=== PATIENT | female | born 1950 | race Caucasian/White ===

== ENCOUNTER → 2023-10-10 11:39 | Outpatient (REF) | payer MEDICARE, OTHER, SELFPAY ==
[2023-10-10 12:08] LABS: % Basophils 0.7 % (0-2); % Eosinophils 5.8 % (0-6); % Immature Granulocytes 0.7 % (0-0.5); % Lymphocytes 25.7 % (20.5-51.1); % Monocytes 8.7 % (1.7-9.3); % Neutrophils 58.4 % (42.2-75.2); Absolute Eosinophils 0.3 10^3/uL (0-0.7); Absolute Lymphocytes 1.5 10^3/uL (1.2-3.4); Absolute Monocytes 0.5 10^3/uL (0.1-0.6); Absolute Neutrophils 3.4 10^3/uL (1.4-6.5); Hematocrit 36.7 % (37.0-47.0); Hemoglobin 12.8 g/dL (12.0-16.0); Mean Corp Hgb Conc. 34.9 g/dL (33.0-37.0); Mean Corpuscular Hgb 32.9 pg (27.0-31.0); Mean Corpuscular Volume 94.3 fL (81.0-99.0); Mean Platelet Volume 10.3 fL (7.4-10.4); Nucleated Red Blood Cells % 0 %; Platelet Count 200 10^3/uL (130-400); Red Blood Cell Count 3.89 10^6/uL (4.20-5.40); Red Cell Dist. Width 12.3 % (11.5-14.5); White Blood Cell Count 5.8 10^3/uL (4.8-10.8)
[2023-10-10 12:31] LABS: ALT (SGPT) 28 U/L (0-35); AST (SGOT) 35 U/L (14-36); Albumin 4.4 g/dl (3.5-5.0); Alkaline Phosphatase 91 U/L (38-126); Direct Bilirubin 0.6 mg/dl (0.0-0.4); Total Bilirubin 1.2 mg/dl (0.2-1.3); Total Protein 7.8 g/dl (6.3-8.2)
[2023-10-13 00:58] LABS: Quantiferon Mitogen minus NIL 9.39 IU/mL; Quantiferon NIL 0.03 IU/mL; Quantiferon Plus TB2 minus NIL 0.01 IU/mL (0.00-0.34); Quantiferon TB Gold Plus Negative (Negative)
== END ==
LOC: REG 11:39
PROVIDERS: ATTENDING PHYSICIAN Nurse Practitioner; FAMILY PHYSICIAN Family Medicine
DX: L40.8 Other psoriasis (principal)
CPT/HCPCS: 36415; 80076; 85025; 86480

== ENCOUNTER 2024-05-28 21:40 | Inpatient (IN) | payer MEDICARE, OTHER, SELFPAY ==
[2024-05-28 15:09] VITALS: BP 160/91
[2024-05-28 15:40] LABS: % Basophils 0.4 % (0-2); % Eosinophils 2.2 % (0-6); % Immature Granulocytes 0.7 % (0-0.5); % Lymphocytes 17.5 % (20.5-51.1); % Monocytes 10.5 % (1.7-9.3); % Neutrophils 68.7 % (42.2-75.2); Absolute Eosinophils 0.2 10^3/uL (0-0.7); Absolute Immature Granulocytes 0.1 10^3/uL (0-0.05); Absolute Lymphocytes 1.5 10^3/uL (1.2-3.4); Absolute Monocytes 0.9 10^3/uL (0.1-0.6); Absolute Neutrophils 5.9 10^3/uL (1.4-6.5); Hematocrit 35.7 % (37.0-47.0); Hemoglobin 12.6 g/dL (12.0-16.0); Mean Corp Hgb Conc. 35.3 g/dL (33.0-37.0); Mean Corpuscular Hgb 32.6 pg (27.0-31.0); Mean Corpuscular Volume 92.5 fL (81.0-99.0); Mean Platelet Volume 9.8 fL (7.4-10.4); Nucleated Red Blood Cells % 0 %; Platelet Count 189 10^3/uL (130-400); Red Blood Cell Count 3.86 10^6/uL (4.20-5.40); Red Cell Dist. Width 12.8 % (11.5-14.5); White Blood Cell Count 8.6 10^3/uL (4.8-10.8)
[2024-05-28 15:48] LABS: Urine Albumin Trace (Neg - Trace); Urine Bilirubin 1+ (Negative); Urine Character Clear (Clear); Urine Color Yellow; Urine Glucose Negative (Negative); Urine Ketone Negative (Negative); Urine Leukocyte 1+ (Negative); Urine Nitrite Negative (Negative); Urine Occult Blood Negative (Negative); Urine Specific Gravity 1.015 (<1.030); Urine Urobilinogen Negative (Neg - 1+)
[2024-05-28 15:51] LABS: Lactic Acid 1.3 mmol/L (0.7-2.0)
[2024-05-28 15:57] LABS: ALT (SGPT) 26 U/L (0-35); AST (SGOT) 27 U/L (14-36); Albumin 4.7 g/dl (3.5-5.0); Alkaline Phosphatase 80 U/L (38-126); Blood Urea Nitrogen 20 mg/dl (7-17); Calcium 8.8 mg/dl (8.4-10.2); Carbon Dioxide 19 mmol/L (22-30); Chloride 99 mmol/L (98-107); Glucose 128 mg/dl (70-99); Lipase 33 U/L (23-300); Potassium 4.3 mmol/L (3.5-5.1); Sodium 135 mmol/L (135-145); Total Bilirubin 2.1 mg/dl (0.2-1.3); Total Protein 7.6 g/dl (6.3-8.2); eGFR 43.15
[2024-05-28 16:05] LABS: Urine Bacteria Many (Negative); Urine Red Blood Cell 0-2 /HPF (0-2)
[2024-05-28 17:47] VITALS: BP 136/81; BMI 39.8
--- NOTE | 2024-05-28 18:15 | ED.GENMED ---
History of Present Illness
General
Chief Complaint: Abdominal Pain
Source: patient
Exam Limitations: none
Time Seen by Provider: 05/28/24 17:00
Nursing documentation reviewed up to this point in time: agreed with
History of Present Illness
History of Present Illness:
pt is a 73 y/o F with h/o remote femur fx
Also remote diagnosis of ulcerative colitis though she takes no meds for this and this was years and years ago. She also had a history of anal surgery and a rectal prolapse surgery years ago at an outside facility
She has not had a colonoscopy in many years
here with RLQ pain x 2 days, worse with movement, very uncomfortable
no radiation to back
no fever/chills/naussea/vomiting/diarrhea/urinary symptoms
bob never had idvertic
still has appendix
nothin taken for pain
laying in bed the past 2 days becuase she is uncomforrtable
Past History
Past History
ED Past Medical History: HTN and Other (obesity)
Social History
Tobacco: Non-smoker
Review of Systems
Review of Systems
Allergies reviewed?: Yes
All Other Systems: Not applicable
Phy Exam
Physical Exam
Physical Exam:
GENERAL: Alert , in no apparent distress
EYE: pupils equal and reactive
NECK: Supple
ENT: o/p clr, mmm.
CARDIAC: Regular rate and rhythm .
LUNGS: Clear breath sounds bilaterally, no acute respiratory distress, no wheezes/rales/rhonchi
ABDOMEN: Soft, mod RLQ tendernesss, moderate voluntary guarding, mild rebound, no cvat, normal bowel sounds
NEUROLOGICAL: Alert and oriented, no focal neuro deficits
SKIN: Warm and dry, skin intact.
MUSCULOSKELETAL: No edema, well perfused.
PSYCH: Normal and appropriate interaction.
Course
Orders/Labs/Results
Orders:
Orders
05/28/24 Dinner
NPO
Allow oral meds: No
Allow clear liquids: No
NPO with Ice Chips: No
05/28/24 15:29
Complete Blood Count/With Diff Urgent
Comprehensive Metabolic Panel Urgent
Lactic Acid Urgent
Lipase Urgent
Urinalysis Reflex To Culture Urgent
Date Specimen was Collected: 05/28/24
Time Specimen was Collected: 14:55
Urine Microscopic Reflex Cult Urgent
Urine Culture Urgent
GEENA Source: U
Specimen Description:
Date Specimen was Collected: 05/28/24
Time Specimen was Collected: 14:55
05/28/24 17:57
CT Abd/Pel (IV only)-DH only Urgent
Comment:
Reason For Exam: rlq pain x 2 days, guarding rebound
0.9% Sodium Chloride 1000 ml [Nss] 1,000 ml IV BOLUS
HYDROmorphone [Dilaudid] 0.5 mg IV NOW STA
05/28/24 19:24
Ciprofloxacin 400 mg/[id number] [Cipro 400 mg] 200 ml IV NOW
MetroNIDAZOLE 500 MG/100 ML [Flagyl 500 mg] 100 ml IV NOW
05/28/24 20:10
HYDROmorphone [Dilaudid] 1 mg IV NOW STA
Abnormal Lab Results
05/28/24
15:29
RBC 3.86 L 10^6/uL
(4.20-5.40)
Hct 35.7 L %
(37.0-47.0)
MCH 32.6 H pg
(27.0-31.0)
Abs Immat Gran (auto) 0.1 H 10^3/uL
(0-0.05)
Absolute Monos (auto) 0.9 H 10^3/uL
(0.1-0.6)
Immature Gran % 0.7 H %
(0-0.5)
Lymphocytes % 17.5 L %
(20.5-51.1)
Monocytes % 10.5 H %
(1.7-9.3)
Carbon Dioxide 19 L mmol/L
(22-30)
BUN 20 H mg/dl
(7-17)
Creatinine 1.3 H mg/dL
(0.6-1.0)
Glucose 128 H mg/dl
(70-99)
Total Bilirubin 2.1 H mg/dl
(0.2-1.3)
Urine Bilirubin 1+ A
(Negative)
Leukocyte Esterase Rfl 1+ A
(Negative)
Urine WBC (Reflex) 11-15 A /HPF
(0-5)
Urine Bacteria (Reflex) Many A
(Negative)
05/28/24 15:29
05/28/24 15:29
Vital Signs
Initial and Last Documented VS:
Initial Vital Signs
Temp Pulse Resp BP Pulse Ox
98.3 F 90 20 160/91 98
05/28/24 15:09 05/28/24 15:09 05/28/24 15:09 05/28/24 15:09 05/28/24 15:09
Last Documented Vital Signs
Temp Pulse Resp BP Pulse Ox
98.5 F 86 16 136/81 98
05/28/24 17:47 05/28/24 17:47 05/28/24 17:47 05/28/24 17:47 05/28/24 18:15
MDM/Problems Addressed
Differential Diagnosis Includes:
Appendicitis, diverticulitis, ischemic bowel, perforation
MDM/Problems Addressed:
luzmckinley camejo 73 yo F 2 days RLQ pain, no fever/no diarrhea
no chronic GI issues reported; very tender RLQ with mild rebound, wbc 8.6 lactic normal
and this confusing ct report
[facility] CT: Suspicion for a large 5.5 cm mucosal-based intraluminal mass in the distal ascending colon. Diagnostic possibilities are (1) colon adenocarcinoma or (2) a conglomerate of fecal material.
Mild acute colitis in the more proximal ascending colon.
Severe chronic colitis throughout the transverse colon, descending colon, sigmoid colon, and rectum with an increased amount of submucosal fat deposition throughout the colon.
7.3 mm calcified appendicolith in the base of the appendix and mild appendiceal distention suspicious for mild acute appendicitis.
Mild hepatic cirrhosis.
Mild hepatosplenomegaly.
Discussed the case with on-call general surgeon Dr. Soria who did not feel that the appendix was likely to be the cause of the patient's symptoms but more suspicious that she is having some reactive inflammation from the colon mass and the colonic
distention and colitis. Patient is still in a fair amount of pain. He is aware of this. I ordered IV antibiotics. His recommendation was to admit to the medicine, keep n.p.o., consult GI, she will need a workup for this mass
*Critical Care Note
Total Time (30-74mins, 75-104mins- exclusive of procedures): Not Applicable
ED Attending Note
-
Portions of this chart may have been created with voice recognition software.� Occasional wrong word or��sound alike� substitutions may have occurred due to the inherent limitations of voice recognition software.
Discharge Plan
Departure
Patient Disposition: Admit
Date of Disposition: 05/28/24
Time of Disposition: 19:42
Admit to: Med/Surg
Presentation/result/management discussed w/ accepting MD/DO: Hospitalist
Condition: Fair
Covid-19: Not Applicable
Discharge Problem:
Colonic mass, Colitis, Appendicolith
Prescriptions:
No Action
cyanocobalamin (vitamin B-12) 1,000 mcg Tablet
1,000 mcg PO DAILY
lisinopril 10 mg Tablet
10 mg PO DAILY
hydrochlorothiazide 25 mg Tablet
25 mg PO DAILY
esomeprazole magnesium [Nexium 24HR] 20 mg Capsule,Delayed Release(Dr/Ec)
20 mg PO DAILYPRN PRN (Reason: gerd)
cholecalciferol (vitamin D3) [Vitamin D3] 25 mcg (1,000 unit) Tablet
25 mcg PO DAILY
Referrals:
Barber Calderon, DO [Family Provider] -
Interventions
Interventions:
*Risk Screen - Suicide Last Done: 05/28/24 17:47
*General Assessment Last Done: 05/28/24 15:09
*Neglect/Abuse Screening Last Done: 05/28/24 17:47
ED- Fall Risk Assessment Last Done: 05/28/24 17:47
*ED COVID-19 Vaccine History Last Done: 05/28/24 17:47
BE-Knemke-Btoqqwdaqq Assessment Last Done: 05/28/24 17:47
Discharge Date and Time
Print Language: AMHARIC
[2024-05-28] MEDS: NSS 1000 IV ×2 (18:16→23:34)
[2024-05-28] MEDS: DILAUDID 0.5 MG IV (18:16)
--- NOTE | 2024-05-28 20:22 | HPS.HSE ---
Addendum entered and electronically signed by Van Hilliard DO 05/28/24 22:01:
Patient seen and examined independently. Agree with findings and plan as set forth by VERENICE Piedra.
Patient is a 73y F with PMH significant for bladder cancer, hypertension and prior rectal surgeries who presents to ED complaining of RLQ pain for the past 24 hours. Patient reports recent loose stools due to magnesium supplementation. No
bloody / black stools. No noted constipation, N/V, fevers / chills, etc.
Evaluation in the ED includes CT scan which sows possible ascending colon mass versus conglomerate of fecal material.
Ass:
RLQ Pain - Mass v Constipation
Possible Appendicitis
CKD III
Anion Gap Metabolic Acidosis
Benign Hypertension
GERD
Plan;
Admit for further evaluation and treatment.
NPO, IVFs, pain control, etc.
Colorectal Surgery evaluation for colonoscopy versus surgery for further evaluation of ascending colon abnormality.
IV abx for now - though patient is afebrile and not toxic appearing.
Continue outpatient medications.
Follow for any new / worsening symptoms.
Original Note:
Family Physician
-
Family Physician: Barber Calderon
Chief Complaint
-
right lower quadrant pain
History of Present Illness
73 y/o F with PMH for ulcerative colitis, bladder cancer, GERD, HTN, rectal prolpase, anal surgery presented to us with right lower quadrant pain for past two days. stated no appetite for two days. she has chronic diarrhea.denied nausea or
vomiting. denied fever, chills, chest pain, sob.denied AVERY, dizy or syncopal episode. denied dysuria or hematuria.
CT with Suspicion for a large 5.5 cm mucosal-based intraluminal mass in the distal ascending colon. Diagnostic possibilities are (1) colon adenocarcinoma or (2) a conglomerate of fecal material.
2. Mild acute colitis in the more proximal ascending colon.
3. Severe chronic colitis throughout the transverse colon, descending colon, sigmoid colon, and rectum with an increased amount of submucosal fat deposition throughout the colon.
4. 7.3 mm calcified appendicolith in the base of the appendix and mild appendiceal distention suspicious for mild acute appendicitis.
patient received IV Cipro and Flagyl, fluids. admitting for further management.
Medical History
Past Medical History
Past Medical History: Reports Other
Additional Past Medical History:
Obstructive sleep apnea
Hypertension
Bladder cancer
Insomnia
GERD
Hyperlipidemia
hypertension
Chronic kidney disease a
Past Surgical History: Reports Other
Additional Past Surgical History:
anal surgery
left femur surgery
Social History
Tobacco: Former Smoker
Alcohol: Occasional
Drug: None
Family History
Family History: Not pertinent
Allergies / Home Medications
Allergies reflects when Allergies were last updated in the grafter.
Home Medications with original date entered in the grafter
Allergy/Medication List:
Allergies
Allergy/AdvReac Type Severity Reaction Status Date / Time
penicillin G Allergy Hives Verified 05/28/24 15:09
Penicillins Allergy Hives Verified 05/28/24 15:09
Home Medications
cholecalciferol (vitamin D3) 25 mcg (1,000 unit) tablet (Vitamin D3) 25 mcg PO DAILY 05/28/24
cyanocobalamin (vitamin B-12) 1,000 mcg tablet 1,000 mcg PO DAILY 05/28/24
esomeprazole magnesium 20 mg capsule,delayed release (Nexium 24HR) 20 mg PO DAILYPRN PRN gerd 05/28/24
hydrochlorothiazide 25 mg tablet 25 mg PO DAILY 05/28/24
lisinopril 10 mg tablet 10 mg PO DAILY 05/28/24
Review of Systems
-
Constitutional: Reports No Symptoms
EENT: Reports No Symptoms
Respiratory: Reports No Symptoms
Cardiac: Reports No Symptoms
Abdomen/GI: Reports Other (right lower quadrant pain)
: Reports No Symptoms
Musculoskeletal: Reports No Symptoms
Skin: Reports No Symptoms
Neurological: Reports No Symptoms
Endocrine: Reports No Symptoms
Hematologic/Lymphatic: Reports No Symptoms
Psych: Reports No Symptoms
Physical Exam
Vital Signs
Vital Signs
Temp Pulse Resp BP Pulse Ox
98.5 F 86 16 136/81 98
05/28/24 17:47 05/28/24 17:47 05/28/24 17:47 05/28/24 17:47 05/28/24 18:15
Physical Exam
General: Well Developed, Well Nourished and No Apparent Distress
HEENT: NormoCephalic, Moist mucous membranes and Atraumatic
Respiratory: Clear
Cardiac: S1/S2 and Regular Rhythm; No Murmur or Rub
GI: Soft, Non Distended, Normal Bowel Sounds and Tender (right lower quadrant); No Organomegaly
Rectal: Deferred by Provider
Musculoskeletal: No Clubbing, No Cyanosis and No Edema
Skin: No Rash
Neuro: AO x 3 and Nonfocal/grossly intact
Psych: Calm
Laboratory Results
-
05/28/24 15:29
05/28/24 15:29
Laboratory Results
Lactic Acid 1.3 mmol/L (0.7-2.0) 05/28/24 15:29
Total Bilirubin 2.1 mg/dl (0.2-1.3) H 05/28/24 15:29
AST 27 U/L (14-36) 05/28/24 15:29
ALT 26 U/L (0-35) 05/28/24 15:29
Alkaline Phosphatase 80 U/L (38-126) 05/28/24 15:29
Lipase 33 U/L (23-300) 05/28/24 15:29
Data Reviewed
-
Diagnostic Radiology: Report Reviewed by me
Lab Data: Labs Reviewed by me
Impression/Plan
-
# Right lower quadrant pain/decreased appetite likely from colon mass with severe colitis
-GI consulted
-CT with Suspicion for a large 5.5 cm mucosal-based intraluminal mass in the distal ascending colon. Diagnostic possibilities are (1) colon adenocarcinoma or (2) a conglomerate of fecal material.
2. Mild acute colitis in the more proximal ascending colon.
3. Severe chronic colitis throughout the transverse colon, descending colon, sigmoid colon, and rectum with an increased amount of submucosal fat deposition throughout the colon.
4. 7.3 mm calcified appendicolith in the base of the appendix and mild appendiceal distention suspicious for mild acute appendicitis.
5. Mild hepatic cirrhosis.
6. Mild hepatosplenomegaly.
#acute appendicitis
-Keep patient n.p.o.
-Cipro and Flagyl continued
-Dilaudid as needed for pain
#CKD [id number]/anion gap metabolic acidosis
=cr 1.3
-ctm
-fluids continued
-BMp in am
# History of bladder cancer
-Follow up with neurology
# GERD
-PPI continued
# Essential hypertension
-HCTZ and lisinopril continued with hold parameters DVT prophylaxis
# DVT prophylaxis SCDs
# CODE STATUS
-Full code
[2024-05-28] MEDS: FLAGYL 500 MG 100 IV (20:52)
[2024-05-28] MEDS: DILAUDID 1 MG IV (20:52)
[2024-05-28] MEDS: CIPRO 400 MG 200 IV (22:00)
[2024-05-28 22:15] VITALS: BMI 39.2
[2024-05-28 22:26] VITALS: BP 162/88
[2024-05-29] MEDS: FLAGYL 500 MG 100 IV ×3 (04:11→20:01)
[2024-05-29 07:29] LABS: Hematocrit 31.3 % (37.0-47.0); Mean Corp Hgb Conc. 35.1 g/dL (33.0-37.0); Mean Platelet Volume 10.1 fL (7.4-10.4); Platelet Count 155 10^3/uL (130-400); Red Blood Cell Count 3.44 10^6/uL (4.20-5.40); Red Cell Dist. Width 12.9 % (11.5-14.5); White Blood Cell Count 6.4 10^3/uL (4.8-10.8)
[2024-05-29 07:37] VITALS: BP 157/77
[2024-05-29 08:18] LABS: Blood Urea Nitrogen 16 mg/dl (7-17); Carbon Dioxide 21 mmol/L (22-30); Chloride 103 mmol/L (98-107); Estimated Creatinine Clearance 59 ml/min; Glucose 111 mg/dl (70-99); Potassium 3.9 mmol/L (3.5-5.1); Sodium 139 mmol/L (135-145); eGFR 52.73
[2024-05-29] MEDS: ORETIC 25 MG PO (09:27)
[2024-05-29] MEDS: ZESTRIL 10 MG PO (09:27)
[2024-05-29] MEDS: CIPRO 400 MG 200 IV ×2 (09:27→21:57)
--- NOTE | 2024-05-29 10:50 | CON.CRS ---
Consultation
-
Date/Time Consultation Requested: 05/28/2024, 22:11
Date/Time Consultation Performed: 05/29/2024, 08:45
Requesting Provider: Van Hilliard DO
Performing Provider: Yusuf Sy MD
Reason for Consultation: possible colon mass
Medical History
-
Chief Complaint: RLQ pain
History of Present Illness:
73-year-old female presents to [place] ER complaining of right lower quadrant pain for the past day. She states that it has been improving but it was painful enough to bring her into the ER. Generally speaking her bowel movements are normal but
recently she started a magnesium supplement due to hypomagnesia and now her bowels are consistently loose in nature. She denies any bleeding. She does not feel bloated. She denies fevers or chills. On arrival to the ER her WBC was 8.6. Her
vitals have remained normal. CT of the abdomen and pelvis shows suspicion for a large 5.5 cm mucosal-based intraluminal mass in the distal ascending colon. Possibilities are colon adenocarcinoma versus a conglomerate of fecal material. There is
also mild acute colitis in the more proximal ascending colon. Severe chronic colitis throughout the transverse, descending, sigmoid colon and rectum. 7.3 mm calcified appendicolith in the base of the appendix and mild appendicial distention
suspicious for mild acute appendicitis.
The patient states she has never had abdominal surgery. She had 2 rectal surgeries in the past. One was at 24 years old due to anal stenosis. Another was 10 years ago due to a rectocele which was repaired at [facility] by a smelter charger. She
is had a colonoscopy over 10 years ago. She has no family history of rectal or colon cancer. We have been consulted for further surgical opinion.
Past Medical History
Past Medical History: Cancer (Bladder cancer), HTN, Hypercholesterolemia and Other (Obstructive sleep apnea, Insomnia, GERD, Chronic kidney disease )
Past Surgical History: Other (left femur repair, anal stenosis surgery, rectocele repair)
Social History
Tobacco: Former Smoker
Alcohol: Occasional
Drug: None
Family History
Family History: Reviewed & Not Pertinent
Allergies / Home Medications
Allergy/AdvReac Type Severity Reaction Status Date / Time
penicillin G Allergy Hives Verified 05/28/24 15:09
Penicillins Allergy Hives Verified 05/28/24 15:09
�Medication �Instructions �Recorded �Confirmed �Type
cholecalciferol (vitamin D3) 25 25 mcg PO DAILY Supplement 05/28/24 05/28/24 History
mcg (1,000 unit) tablet (Vitamin
D3)
cyanocobalamin (vitamin B-12) 1,000 mcg PO DAILY Supplement 05/28/24 05/28/24 History
1,000 mcg tablet
esomeprazole magnesium 20 mg 20 mg PO DAILYPRN PRN gerd 05/28/24 05/28/24 History
capsule,delayed release (Nexium
24HR)
hydrochlorothiazide 25 mg tablet 25 mg PO DAILY Blood Pressure 05/28/24 05/28/24 History
lisinopril 10 mg tablet 10 mg PO DAILY Blood Pressure 05/28/24 05/28/24 History
Review of Systems
-
History Source: Patient
All other systems: Negative unless noted
Abdomen/GI: Pain (RLQ)
A 10 point review of systems was completed, and was negative except as per HPI.
Physical Exam
Vital Signs
Temp 97.9 F 05/29/24 07:37
Pulse 78 05/29/24 07:37
Resp Rate 16 05/29/24 07:37
Blood pressure 157/77 05/29/24 07:37
SaO2 98 05/29/24 07:37
05/28/24 05/29/24 05/30/24
06:59 06:59 06:59
Actual Weight 115.122 kg
Body Mass Index (BMI) 39.2
Lab Results / Allergies
05/29/24 06:59
09/26/24 06:59
WBC 6.4 10^3/uL (4.8-10.8) 05/29/24 06:59
Hgb 11.0 g/dL (12.0-16.0) L 05/29/24 06:59
Hct 31.3 % (37.0-47.0) L 05/29/24 06:59
Plt Count 155 10^3/uL (130-400) 05/29/24 06:59
Abs Immat Gran (auto) 0.1 10^3/uL (0-0.05) H 05/28/24 15:29
Neutrophils % 68.7 % (42.2-75.2) 05/28/24 15:29
Allergy/AdvReac Type Severity Reaction Status Date / Time
penicillin G Allergy Hives Verified 05/28/24 15:09
Penicillins Allergy Hives Verified 05/28/24 15:09
Physical Exam
General: Well Developed, Well Nourished and No Apparent Distress
GI: Soft, Non Distended and Tender (RLQ- mild)
Neuro: AO x 3
Psych: Calm
Data Reviewed
-
CT Scan: Image Personally Visualized and interpreted, Report Reviewed by me and Discussed with Patient
Labs: Labs Reviewed by me, Discussed with Physician and Discussed with Patient
Old Records: Reviewed
Assessment / Plan
-
Assessment: 73-year-old female with 1 day of right lower quadrant pain found to have a colon mass versus conglomerate fecal material in the ascending colon as well as an appendicolith
Plan:
- Will need colonoscopy to further investigate findings on CT
- Discussed case with Dr. Otto who will perform the colonoscopy
- Okay for clears today
- May need eventual appendectomy given the appendicolith
- Plans for follow post scope
[2024-05-29] MEDS: TYLENOL 650 MG PO (11:56)
[2024-05-29] MEDS: NSS 1000 IV (11:56)
--- NOTE | 2024-05-29 12:20 | W.PN.HOSP.TC ---
Today's Communication/Plan
-
see outlined plan
Assessment / Plan
Assessment / Plan
Assessment:
RLQ pain
- CT: Suspicion for a large 5.5 cm mucosal-based intraluminal mass in the distal ascending colon. Diagnostic possibilities are (1) colon adenocarcinoma or (2) a conglomerate of fecal material. Mild acute colitis in the more proximal ascending colon.
Severe chronic colitis throughout the transverse colon, descending colon, sigmoid colon, and rectum with an increased amount of submucosal fat deposition throughout the colon. 7.3 mm calcified appendicolith in the base of the appendix and mild
appendiceal distention suspicious for mild acute appendicitis.
- GI and CRS consulted
- continue IV Abx
- continue IVF
- continue pain control
- diet: clears
- bowel prep today for colonoscopy likely tomorrow
- may need appendectomy
CKD stage 3b
Anion-gap metabolic acidosis
- Cr 1.1
- follow BMP
History of bladder cancer
- Follow up with neurology
GERD
- PPI continued
Essential hypertension
- HCTZ and lisinopril continued with hold parameters DVT prophylaxis
Cirrhosis and hepatosplenomegaly on CT
- mild per report
- OP GI f/u
DVT ppx: SCDs
Code: Full
Anticipated Discharge: > 48 hours
Subjective/Interval History
-
Date of Service: May 29, 2024
feels well, no complaints
Objective Data
-
Labs:
Laboratory Results
05/29/24
06:59
WBC 6.4
Hgb 11.0 L
Hct 31.3 L
Plt Count 155
Sodium 139
Potassium 3.9
Chloride 103
Carbon Dioxide 21 L
BUN 16
Creatinine 1.1 H
Glucose 111 H
Calcium 8.0 L
Vital Signs:
Vital Signs
Temp Pulse Resp BP Pulse Ox
97.9 F 78 16 157/77 98
05/29/24 07:37 05/29/24 07:37 05/29/24 07:37 05/29/24 07:37 05/29/24 07:37
I&O
05/28/24 05/29/24 05/30/24
06:59 06:59 06:59
Intake Total 0 / 0
Balance 0 / 0
Physical Exam
-
General: No Apparent Distress
HEENT: Normocephalic and Atraumatic
Respiratory: Negative Wheezes or Rales
Cardiac: Regular Rhythm and S1/S2
GI: Soft and Nontender
Neuro: AO x 3
Psych: Calm
Data Reviewed
-
Total Time Spent with Patient (in minutes): 41
Labs: Labs Reviewed by me
--- NOTE | 2024-05-29 14:56 | CM ---
Reviewed chart, met with patient to obtain information for assessment. Patient stated that she lives alone in a two story home with no steps to enter. She described herself as independent with her ADLs, self care, toileting, bathing and dressing.
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 Patient drives and can get to all of her appointments and does all of her own shopping. She relayed that she is an avid traveler. Patient denied any DME in her home. She
does not use a device to assist with ambulation.
Patient has never been to a SNF.
Patient has a prescription plan and uses, [facility] in [place] for all of her medications.
Patient's PCP is, Barber Blackburn.
Patient stated that she feels she is at baseline level of functioning and wants to return home when stable.
Plan: Case management will continue to follow and assist with discharge planning. Home when cleared.
[2024-05-29 15:32] VITALS: BP 160/83
--- NOTE | 2024-05-29 15:42 | CON.GI ---
Consultation
-
Date/Time Consultation Requested: 05/29/24 at 10 am
Date/Time Consultation Performed: 05/29/24 at 2pm
Requesting Provider: Yossi
Performing Provider: Fam
Reason for Consultation: need for colonoscopy
Medical History
Chief Complaint / HPI
Chief Complaint: abdominal pain
History of Present Illness:
This patient is a 73-year-old woman who was admitted to [facility] with right lower quadrant pain. She states that it was occurring on and off with diarrhea that she attributed to starting a magnesium supplement. She started having more severe
right lower quadrant pain which led her to the emergency room. She did have a CAT scan in the emergency room which I did review. The reading did state that there was a large intraluminal mass in the distal ascending colon but also did state that
there was an appendicolith, colitis, and stool in the colon. Surgery was consulted for probable appendicitis. They did rule that out after seeing the patient and reviewing the reports and films. Dr. Sy did call me directly to ask for a
colonoscopy to evaluate the abnormality seen. The patient currently only has some mild discomfort. She is never had fevers or white count. She does note having this diarrhea has been intermittent.
Past Medical History
Past Medical History: Other (bladder cancer, Hypertension, hypercholesterolemia, obstructive sleep apnea, GERD, chronic kidney disease.)
Past Surgical History: Other (To rectal surgeries in the past due to anal stenosis and rectocele.)
Social History
Tobacco: Former Smoker
Family History
Family History: Reviewed & Not Pertinent
Allergies / Home Medications
Allergy/AdvReac Type Severity Reaction Status Date / Time
penicillin G Allergy Hives Verified 05/28/24 15:09
Penicillins Allergy Hives Verified 05/28/24 15:09
�Medication �Instructions �Recorded
cholecalciferol (vitamin D3) 25 25 mcg PO DAILY Supplement 05/28/24
mcg (1,000 unit) tablet (Vitamin
D3)
cyanocobalamin (vitamin B-12) 1,000 mcg PO DAILY Supplement 05/28/24
1,000 mcg tablet
esomeprazole magnesium 20 mg 20 mg PO DAILYPRN PRN gerd 05/28/24
capsule,delayed release (Nexium
24HR)
hydrochlorothiazide 25 mg tablet 25 mg PO DAILY Blood Pressure 05/28/24
lisinopril 10 mg tablet 10 mg PO DAILY Blood Pressure 05/28/24
Review of Systems
-
All other systems: A 12 pt ROS was Negative except as stated above in HPI
Vital Signs
Temp Pulse Resp BP Pulse Ox
98.2 F 80 18 160/83 97
05/29/24 15:32 05/29/24 15:32 05/29/24 15:32 05/29/24 15:32 05/29/24 15:32
Physical Exam
Exam
General: No Apparent Distress
Respiratory: Clear
Cardiac: S1/S2
GI: Soft and Non Tender (Mildly tender in the right lower quadrant)
Neuro: Awake and Oriented
Psych: Calm
Results
WBC 6.4 10^3/uL (4.8-10.8) 05/29/24 06:59
Hgb 11.0 g/dL (12.0-16.0) L 05/29/24 06:59
Hct 31.3 % (37.0-47.0) L 05/29/24 06:59
MCV 91.0 fL (81.0-99.0) 05/29/24 06:59
Plt Count 155 10^3/uL (130-400) 05/29/24 06:59
Absolute Neuts (auto) 5.9 10^3/uL (1.4-6.5) 05/28/24 15:29
Sodium 139 mmol/L (135-145) 05/29/24 06:59
Potassium 3.9 mmol/L (3.5-5.1) 05/29/24 06:59
Chloride 103 mmol/L (98-107) 05/29/24 06:59
Carbon Dioxide 21 mmol/L (22-30) L 05/29/24 06:59
BUN 16 mg/dl (7-17) 05/29/24 06:59
Creatinine 1.1 mg/dL (0.6-1.0) H 05/29/24 06:59
Calcium 8.0 mg/dl (8.4-10.2) L 05/29/24 06:59
Total Bilirubin 2.1 mg/dl (0.2-1.3) H 05/28/24 15:29
AST 27 U/L (14-36) 05/28/24 15:
ALT 26 U/L (0-35) 05/28/24 15:29
Alkaline Phosphatase 80 U/L (38-126) 05/28/24 15:29
Lipase 33 U/L (23-300) 05/28/24 15:29
Assessment / Plan
-
This patient is a 73-year-old woman who has a history of right-sided abdominal pain with an abnormal CAT scan the question is a mass versus colitis in the right side of the colon. She was ruled out for appendicitis by surgery. She did have a
colonoscopy but that was over 10 years ago at an outside facility. We are consulted by Dr. Sy for a colonoscopy. For now would do the following;
-It is reasonable to proceed with colonoscopy. The patient understands and will do a preparation tonight and remain on clears. Plan would be to do a colonoscopy tomorrow.
-Stool studies would be indicated if diarrhea recurs.
Data Reviewed
-
Radiology: Image Personally Visualized and interpreted and Report Reviewed by me
-
-
Thank you for consultation and allowing me to participate in the patient's care. Please call the instructional assistant GI physician during the after hours with any questions or concerns.
[2024-05-29] MEDS: GAVILAX 238 GM PO (18:04)
[2024-05-29 23:32] VITALS: BP 142/78
[2024-05-30] MEDS: NSS 1000 IV (01:33)
[2024-05-30] MEDS: FLAGYL 500 MG 100 IV ×2 (04:00→13:25)
[2024-05-30 07:45] VITALS: BP 145/71
[2024-05-30 08:41] LABS: Hematocrit 30.1 % (37.0-47.0); Hemoglobin 10.6 g/dL (12.0-16.0); Mean Corp Hgb Conc. 35.2 g/dL (33.0-37.0); Mean Corpuscular Volume 90.9 fL (81.0-99.0); Mean Platelet Volume 9.9 fL (7.4-10.4); Platelet Count 167 10^3/uL (130-400); Red Blood Cell Count 3.31 10^6/uL (4.20-5.40); Red Cell Dist. Width 12.9 % (11.5-14.5); White Blood Cell Count 5.2 10^3/uL (4.8-10.8)
[2024-05-30 09:11] LABS: Blood Urea Nitrogen 11 mg/dl (7-17); Calcium 7.9 mg/dl (8.4-10.2); Carbon Dioxide 21 mmol/L (22-30); Chloride 102 mmol/L (98-107); Estimated Creatinine Clearance 65 ml/min; Glucose 120 mg/dl (70-99); Potassium 3.9 mmol/L (3.5-5.1); Sodium 136 mmol/L (135-145); eGFR 59.12
[2024-05-30] MEDS: ZESTRIL 10 MG PO (09:30)
[2024-05-30] MEDS: ORETIC 25 MG PO (09:30)
[2024-05-30] MEDS: CIPRO 400 MG 200 IV (09:31)
--- NOTE | 2024-05-30 12:03 | W.PN.HOSP.TC ---
Addendum entered and electronically signed by Erika Ramos MD 06/03/24 20:22:
Diagnosis of Adenocarcinoma has been ruled out and a more appropriate diagnosis for this patient's condition is __Tubular adenoma
Addendum entered and electronically signed by Erika Ramos MD 05/30/24 15:38:
rcri score 0, 3.9% risk of MACE. EKG without ischemic changes. Ok to proceed for proposed colorectal surgery at low-intermediate risk. No additional testing indicated.
Original Note:
Today's Communication/Plan
-
NPO for colonoscopy today; follow results and further recs from GI/GS
Assessment / Plan
Assessment / Plan
Assessment:
RLQ pain
- CT: Suspicion for a large 5.5 cm mucosal-based intraluminal mass in the distal ascending colon. Diagnostic possibilities are (1) colon adenocarcinoma or (2) a conglomerate of fecal material. Mild acute colitis in the more proximal ascending colon.
Severe chronic colitis throughout the transverse colon, descending colon, sigmoid colon, and rectum with an increased amount of submucosal fat deposition throughout the colon. 7.3 mm calcified appendicolith in the base of the appendix and mild
appendiceal distention suspicious for mild acute appendicitis.
- GI and CRS following
- continue IV Cipro/Flagyl, day 2
- continue IVF
- continue pain control
- diet: NPO currently for colonoscopy today
- may need appendectomy for appendicolith
CKD stage 3b
Anion-gap metabolic acidosis
- Cr 1.1
- follow BMP
History of bladder cancer
- Follow up OP Urology
GERD
- PPI continued
Essential hypertension
- HCTZ and lisinopril continued with hold parameters
Cirrhosis and hepatosplenomegaly on CT
- mild per report
- OP GI f/u
DVT ppx: SCDs
Code: Full
Anticipated Discharge: > 48 hours
Subjective/Interval History
-
Date of Service: May 30, 2024
no new complaints
prepped well for todays colonoscopy
Objective Data
-
Labs:
Laboratory Results
05/30/24
08:04
WBC 5.2
Hgb 10.6 L
Hct 30.1 L
Plt Count 167
Sodium 136
Potassium 3.9
Chloride 102
Carbon Dioxide 21 L
BUN 11
Creatinine 1.0
Glucose 120 H
Calcium 7.9 L
Vital Signs:
Vital Signs
Temp Pulse Resp BP Pulse Ox
97.6 F 70 16 145/71 100
05/30/24 07:45 05/30/24 07:45 05/30/24 07:45 05/30/24 07:45 05/30/24 07:45
I&O
05/29/24 05/30/24 05/31/24
06:59 06:59 06:59
Intake Total 0 / 0 1320 / 1320
Balance 0 / 0 1320 / 1320
Physical Exam
-
General: No Apparent Distress
HEENT: Normocephalic and Atraumatic
Respiratory: Negative Wheezes
Cardiac: Regular Rhythm and S1/S2
GI: Soft and Nontender
Musculoskeletal: No Edema
Neuro: AO x 3
Hematologic / Lymphatic: No Lymphadenopathy
Psych: Calm
Data Reviewed
-
Total Time Spent with Patient (in minutes): 41
Labs: Labs Reviewed by me
[2024-05-30 12:42] VITALS: BP 130/60; BP 134/64; BP_SYST 15
[2024-05-30 12:57] VITALS: BP 139/59; BP_SYST 25
[2024-05-30 14:11] LABS: INR 1.12; PT 14.2 Sec (11.4-14.6)
[2024-05-30 14:12] LABS: APTT 32.3 Sec (23.4-35.0)
[2024-05-30 15:04] LABS: CEA 4.86 ng/ml
--- NOTE | 2024-05-30 15:36 | W.DS.TRANS ---
DC Summary - Grade Tamper
-
Discharge Instructions:
Discharge Diagnosis/Procedures colonic mass for surgery next
Diet Low Residue
Activity As tolerated
Instructions:
Stand-Alone Forms:
Changes to Home Medications: No
Discharge Medications:
DC Medications w/original date entered in [facility]
cholecalciferol (vitamin D3) 25 mcg (1,000 unit) tablet (Vitamin D3) 25 mcg PO DAILY Supplement 05/28/24
cyanocobalamin (vitamin B-12) 1,000 mcg tablet 1,000 mcg PO DAILY Supplement 05/28/24
esomeprazole magnesium 20 mg capsule,delayed release (Nexium 24HR) 20 mg PO DAILYPRN PRN gerd 05/28/24
hydrochlorothiazide 25 mg tablet 25 mg PO DAILY Blood Pressure 05/28/24
lisinopril 10 mg tablet 10 mg PO DAILY Blood Pressure 05/28/24
polyethylene glycol 3350 17 gram oral powder packet (ClearLax) 17 g PO DAILY #30 ea 05/30/24
Home Medication Changes
Pending Results: No
Total time spent discharging patient (in min): 42
[2024-05-30 15:41] VITALS: BP 158/91
--- NOTE | 2024-05-30 16:33 | CM ---
Patient medically cleared for discharge. Patient stated that she has a ride. IMM reviewed and signed.
Plan: Case management will continue to follow and assist with discharge planing. Home.
[2024-05-30] MEDS: TYLENOL 650 MG PO (17:26)
--- NOTE | 2024-05-30 18:33 | W.PN.CRS1 ---
Today's Communication / Plan
-
Okay for discharge from my perspective with plans for follow-up in the office Sunday and OR next .
Assessment/Plan
-
Patient with ascending versus transverse colon mass. Colonoscopy results noted. Proximal to mid transverse colon mass described. I suspect this is at the proximal transverse given the CT scan of the abdomen that she had before showing a
questionable mass there to my eyes. There is also a bit of subtle scarring and vascular change in the rectosigmoid area which was biopsied but felt to be subtle and not impressive. Remainder of the colon that was evaluated did not look abnormal.
I discussed this with Dr. Hamm and she does not believe there is active colitis going on. Interestingly on discussion with the patient she describes having had colitis at age 24 that was treated medically for short period of time but resolved.
Had a CT of the chest today that that I reviewed and showed no evidence for metastatic disease. CEA barely elevated at 4.86. I discussed the above with the patient at the bedside. I told her this is either a large but benign not endoscopically
resectable polyp or a colon cancer. Pathology is pending. Regardless a robotic right colectomy (perhaps extended right) is being planned. This is tentatively on my schedule for . I emphasized that imaging did not show any evidence
for metastatic disease. The barely elevated CEA is also reassuring. Will discuss this in further detail during a office appointment on Sunday. In the meantime today, the patient was cleared for surgery by Dr. Otto. I appreciate his help.
Patient will be discharged shortly.
Subjective Data
Subjective Data
Date of Service: May 30, 2024
Patient seen recently on the floor prior to her discharge.
Still admits to mild abdominal discomfort.
Tolerated prep yesterday before the colonoscopy.
Objective Data
-
Vital Signs
Temp Pulse Resp BP Pulse Ox
97.8 F 70 16 158/91 100
05/30/24 15:41 05/30/24 15:41 05/30/24 15:41 05/30/24 15:41 05/30/24 15:41
Intake & Output
05/29/24 05/30/24 05/31/24
06:59 06:59 06:59
Intake Total 0 / 0 1320 / 1320 1520 / 1520
Balance 0 / 0 1320 / 1320 1520 / 1520
Intake:
Oral fluids 0 / 0 1320 / 1320 1320 / 1320
IV fluids (Total) 200 / 200
Other:
Number of approximated MODERATE 4
amounts of urine
Number of approximated LARGE 1 3
amounts of urine
Number of unmeasured liquid
stools
Rectum 3
Lab Results
05/30/24 08:04
05/30/24 08:04
Physical Exam
-
General: No Acute Distress
Chest: Clear
Cardiovascular: Regular Rate & Rhythm
Abdomen: Soft, Non Distended and Tender (mild R sided)
Data Reviewed
-
CT Scan: Image Reviewed and Report Reviewed
--- NOTE | 2024-06-02 10:16 | PN.CDI ---
CDI
- -
CDI:
Physician Documentation Request
Admit Date: 05/28/24 21:40
Dear Doctor Rachel
Please review the following and provide your response in the progress notes.
The purpose of this query is not to question medical judgement, but to ensure the accuracy of the conditions reported for your patient.
Clinical indicators:
PN 05/30 Suspicion for a Large 5.5 cm mucosal-based intraluminal mass in the distal ascending colon. Diagnostic possibilities are (1) colon adenocarcinoma or(2) a conglomerate of fecal material
Colonoscopy report: an ulcerated partially obstructing large mass was found in the proximal/mid transverse colon, Bx taken
Path report:
A. Proximal transverse colon mass biopsy:
� Pieces of tubular adenoma (no high-grade dysplasia or malignancy).
The request is for one of the following:
- Diagnosis of Adenocarcinoma remains a known or suspected condition for this patient.
- Diagnosis of Adenocarcinoma has been ruled out and a more appropriate diagnosis for this patient's condition is __Tubular adenoma .
- Other (please specify)
- Unable to determine
Use of terms such as suspected, likely, concern for, or probable (associated with a specific diagnosis that is being evaluated, monitored, or treated as if it exists) are acceptable and can be coded in the inpatient setting, when documented at the
time of discharge.
Thank you,
Marybeth Parson
[facility]
Please use your independent medical judgment in providing your response.
== END 2024-05-30 18:50 | disposition home or self-care (01) | DRG 394 ==
LOC: 3 WEST ACU 21:40
PROVIDERS: Internal Medicine Gastroenterology; Physician Assistant; Registered Nurse; ADMITTING PHYSICIAN Hospitalist; ATTENDING PHYSICIAN Internal Medicine; CONSULT PHYSICIAN Internal Medicine; EMERGENCY PHYSICIAN Student in an Organized Health Care Education/Training Program; FAMILY PHYSICIAN Family Medicine; OTHER PHYSICIAN Surgery
PROC: 3E0H8GC Introduction of Other Therapeutic Substance into Lower GI, Via Natural or Artificial Opening Endoscopic (ICD-10-PCS; 2024-05-30)
PROC: 0DBL8ZX Excision of Transverse Colon, Via Natural or Artificial Opening Endoscopic, Diagnostic (ICD-10-PCS; 2024-05-30)
PROC: 0DBN8ZX Excision of Sigmoid Colon, Via Natural or Artificial Opening Endoscopic, Diagnostic (ICD-10-PCS; 2024-05-30)
DX: D12.3 Benign neoplasm of transverse colon (principal); E87.20 Acidosis, unspecified; K56.690 Other partial intestinal obstruction; I12.9 Hypertensive chronic kidney disease with stage 1 through stage 4 chronic kidney disease, or unspecified chronic kidney disease; N18.32 Chronic kidney disease, stage 3b; K21.9 Gastro-esophageal reflux disease without esophagitis; G47.33 Obstructive sleep apnea (adult) (pediatric); G47.00 Insomnia, unspecified; E78.00 Pure hypercholesterolemia, unspecified; K74.60 Unspecified cirrhosis of liver; R16.2 Hepatomegaly with splenomegaly, not elsewhere classified; K57.30 Diverticulosis of large intestine without perforation or abscess without bleeding; E66.9 Obesity, unspecified; Z68.39 Body mass index [BMI] 39.0-39.9, adult; Z88.0 Allergy status to penicillin; Z87.891 Personal history of nicotine dependence; Z85.51 Personal history of malignant neoplasm of bladder; Z79.899 Other long term (current) drug therapy; Z87.19 Personal history of other diseases of the digestive system
CPT/HCPCS: 88305; 71260; 74177; 80048; 80053; 81003; 81015; 82378; 83605; 83690; 85025; 85027; 85610; 85730; 87086; 93005; 96361; 96365; 96375; 99285; Q9967

== ENCOUNTER 2024-06-05 06:03 | Inpatient (IN) | payer MEDICARE, OTHER, SELFPAY ==
[2024-06-05] VITALS (7 sets, daily range): BP systolic 113–156; BP diastolic 56–90; BMI 39.2
[2024-06-05] MEDS: ENTEREG 12 MG PO (06:54)
[2024-06-05] MEDS: TYLENOL 1000 MG PO (06:54)
[2024-06-05] MEDS: NEURONTIN 600 MG PO (06:54)
[2024-06-05] MEDS: NORMOSOL-R/PLASMALYTE-A 1000 IV ×2 (06:54→13:59)
--- NOTE | 2024-06-05 12:23 | W.IMMPOSTOP ---
Addendum entered and electronically signed by Barber Caputo MD 06/13/24 13:52:
Of note pathology report came back consistent with colon cancer (TIN0); as such a retroactive synoptic colon cancer report warranted as follows:
Colon cancer report:
Operation was done with curative intent.
R colectomy with division of ileocolic/R colic vessels.
Addendum entered and electronically signed by Barber Caputo MD 06/05/24 12:33:
Consulting hospitalist for medical management.
Original Note:
Surgical Immed Post Op Note
-
Primary Surgeon: Jo Ann Caputo MD
Assisting Surgeon: NADINE Clay
Pre-op Diagnosis: colon polyp (ascending vs transverse)
Post-op Diagnosis: ascending colon polyp
Procedure Performed: robotic right colectomy
Anesthesia Type: general plus local
Specimen / Cultures: right colon
Estimated Blood Loss: 200 cc
Complications: none
Operative Findings: distal ascending colon polyp/mass with distal tattooing
Srivastava in bladder.
Admit to med surg.
[2024-06-05] MEDS: DILAUDID 0.25 MG IV (13:12)
[2024-06-05 13:28] LABS: % Basophils 0.1 % (0-2); % Immature Granulocytes 0.5 % (0-0.5); % Lymphocytes 3.8 % (20.5-51.1); % Monocytes 2.3 % (1.7-9.3); % Neutrophils 93.3 % (42.2-75.2); Absolute Immature Granulocytes 0.1 10^3/uL (0-0.05); Absolute Lymphocytes 0.4 10^3/uL (1.2-3.4); Absolute Monocytes 0.3 10^3/uL (0.1-0.6); Absolute Neutrophils 10.2 10^3/uL (1.4-6.5); Hematocrit 32.3 % (37.0-47.0); Hemoglobin 11.4 g/dL (12.0-16.0); Mean Corp Hgb Conc. 35.3 g/dL (33.0-37.0); Mean Corpuscular Hgb 32.5 pg (27.0-31.0); Mean Platelet Volume 9.8 fL (7.4-10.4); Nucleated Red Blood Cells % 0 %; Platelet Count 211 10^3/uL (130-400); Red Blood Cell Count 3.51 10^6/uL (4.20-5.40); Red Cell Dist. Width 12.9 % (11.5-14.5)
[2024-06-05 13:42] LABS: Blood Urea Nitrogen 14 mg/dl (7-17); Calcium 8.2 mg/dl (8.4-10.2); Carbon Dioxide 18 mmol/L (22-30); Chloride 98 mmol/L (98-107); Estimated Creatinine Clearance 58 ml/min; Glucose 199 mg/dl (70-99); Magnesium 1.3 mg/dl (1.6-2.3); Potassium 3.6 mmol/L (3.5-5.1); Sodium 133 mmol/L (135-145); eGFR 52.73
--- NOTE | 2024-06-05 14:19 | PTCARENOTE ---
Patient admitted from [facility] post right colectomy secondary to a mass.She is drowsy but arousable.She rates her pain at a 4 out of 10.Vital signs are stable.All incisions are clean and without drainage.The patient is in her bed with the call nye in
reach.Her family is at the bedside.
--- NOTE | 2024-06-05 14:24 | CON.HOSP ---
Family Physician
-
Family Physician: INTERVIEWE UNKNOWN - PT NOT
Chief Complaint
-
post op medical management
History of Present Illness
73-year-old female past medical history of colon mass, CKD 3B, bladder cancer, GERD, hypertension, cirrhosis, presenting for robotic right colectomy for ascending colon polyp. Medicine is consulted for postop medical management. Patient
complaining of abdominal soreness at this time. She reports that she has been healthy apart from right lower quadrant pain related to the colon mass.
She denies smoking or alcohol use.
Medical History
Past Medical History
Past Medical History: Reports Other ( colon mass, CKD 3B, bladder cancer, GERD, hypertension, cirrhosis,)
Past Surgical History: Reports None
Social History
Tobacco: Non-smoker
Alcohol: None
Drug: None
Allergies / Home Medications
Allergies reflects when Allergies were last updated in [facility].
Home Medications with original date entered in [facility]
Allergy/Medication List:
Allergies
Allergy/AdvReac Type Severity Reaction Status Date / Time
penicillin G Allergy Hives Verified 06/03/24 14:51
Penicillins Allergy Hives Verified 06/05/24 06:17
Home Medications
cholecalciferol (vitamin D3) 25 mcg (1,000 unit) tablet (Vitamin D3) 25 mcg PO DAILY Supplement 05/28/24
cyanocobalamin (vitamin B-12) 1,000 mcg tablet 1,000 mcg PO DAILY Supplement 05/28/24
esomeprazole magnesium 20 mg capsule,delayed release (Nexium 24HR) 20 mg PO DAILYPRN PRN gerd 05/28/24
hydrochlorothiazide 25 mg tablet 25 mg PO DAILY Blood Pressure 05/28/24
lisinopril 10 mg tablet 10 mg PO DAILY Blood Pressure 05/28/24
guselkumab 200 mg/2 mL subcutaneous pen injector (Tremfya Pen) 200 mg SC Q10W 06/03/24
metronidazole 500 mg tablet 500 mg PO PRE OP 06/03/24
neomycin 500 mg tablet 500 mg PO PRE OP 06/03/24
sodium sul 1.479 gram-potas ch 0.188 gram-magnes sul 0.225 gram tablet (Sutab) 0 tab PO PER PKG DIR 06/03/24
Review of Systems
-
History Source: Patient
A 12 point Review of Systems was completed except as noted: Yes
Constitutional: Reports No Symptoms
EENT: Reports No Symptoms
Respiratory: Reports No Symptoms
Cardiac: Reports No Symptoms
Abdomen/GI: Reports No Symptoms
: Reports No Symptoms
Musculoskeletal: Reports No Symptoms
Skin: Reports No Symptoms
Neurological: Reports No Symptoms
Endocrine: Reports No Symptoms
Hematologic/Lymphatic: Reports No Symptoms
Psych: Reports No Symptoms
Physical Exam
Vital Signs
Vital Signs
Temp Pulse Resp BP Pulse Ox
97.7 F 80 18 139/70 97
06/05/24 13:56 06/05/24 13:56 06/05/24 13:56 06/05/24 13:56 06/05/24 13:56
Physical Exam
General: Well Developed, Well Nourished and No Apparent Distress
HEENT: Normocephalic, Moist Mucous Membranes and Atraumatic
Respiratory: Clear
Cardiac: S1/S2 and Regular Rhythm; Negative Murmur or Rub
GI: Soft, Non Tender, Non Distended and Normal Bowel Sounds
Rectal: Deferred by Provider
Musculoskeletal: No Clubbing, No Cyanosis and No Edema
Skin: Negative Rash
Neuro: Nonfocal/Grossly Intact
Laboratory Results
-
Laboratory Results
06/05/24 13:18
06/05/24 13:18
Data Reviewed
-
Lab Data: Labs Reviewed
Old Records: Reviewed
Impression / Plan
-
IMPRESSION:
PLAN:
#Ascending colon polyp status post robotic right colectomy
-200 cc blood loss
-Management as per colorectal surgery
-NPO
-Dilaudid, gabapentin for pain
# Chronic Hypomagnesemia likely secondary to hydrochlorothiazide/PPI
-Replete magnesium
Cirrhosis
Essential hypertension
-Continue hydrochlorothiazide, lisinopril
CKD 3B
Chronic anion gap metabolic acidosis
-Renal function at baseline
History of bladder cancer
GERD
-Continue esomeprazole
Chronic anemia
-Hemoglobin stable
Full code
DVT prophylaxis�SCDs
N.p.o.
[2024-06-05] MEDS: TYLENOL 650 MG PO ×2 (17:09→19:47)
[2024-06-05] MEDS: MAGNESIUM OXIDE 500 MG PO (19:47)
[2024-06-06] MEDS: TYLENOL 650 MG PO ×6 (00:05→20:40)
[2024-06-06] MEDS: NORMOSOL-R/PLASMALYTE-A IV (00:07)
[2024-06-06] MEDS: NORMOSOL-R/PLASMALYTE-A 1000 IV ×2 (00:18→12:55)
[2024-06-06 00:29] VITALS: BP 129/76
[2024-06-06 03:00] VITALS: BP 119/70
[2024-06-06 05:49] VITALS: BMI 40.4
[2024-06-06 06:31] LABS: % Basophils 0.1 % (0-2); % Immature Granulocytes 0.6 % (0-0.5); % Neutrophils 87.3 % (42.2-75.2); Absolute Immature Granulocytes 0.1 10^3/uL (0-0.05); Absolute Lymphocytes 0.6 10^3/uL (1.2-3.4); Absolute Monocytes 0.9 10^3/uL (0.1-0.6); Absolute Neutrophils 10.8 10^3/uL (1.4-6.5); Hematocrit 30.6 % (37.0-47.0); Hemoglobin 10.8 g/dL (12.0-16.0); Mean Corp Hgb Conc. 35.3 g/dL (33.0-37.0); Mean Corpuscular Hgb 31.5 pg (27.0-31.0); Mean Corpuscular Volume 89.2 fL (81.0-99.0); Mean Platelet Volume 10.2 fL (7.4-10.4); Nucleated Red Blood Cells % 0 %; Platelet Count 248 10^3/uL (130-400); Red Blood Cell Count 3.43 10^6/uL (4.20-5.40); Red Cell Dist. Width 12.7 % (11.5-14.5); White Blood Cell Count 12.3 10^3/uL (4.8-10.8)
[2024-06-06 06:46] LABS: Blood Urea Nitrogen 14 mg/dl (7-17); Calcium 8.2 mg/dl (8.4-10.2); Carbon Dioxide 21 mmol/L (22-30); Chloride 96 mmol/L (98-107); Estimated Creatinine Clearance 64 ml/min; Glucose 158 mg/dl (70-99); Magnesium 1.4 mg/dl (1.6-2.3); Potassium 4.3 mmol/L (3.5-5.1); Sodium 132 mmol/L (135-145); eGFR 59.12
[2024-06-06 07:09] VITALS: BP 129/65
[2024-06-06] MEDS: ZESTRIL 10 MG PO (08:32)
[2024-06-06] MEDS: ORETIC 25 MG PO (08:32)
[2024-06-06] MEDS: ENTEREG 12 MG PO ×2 (08:32→20:39)
[2024-06-06] MEDS: PROTONIX 40 MG PO (08:33)
[2024-06-06] MEDS: DILAUDID 0.25 MG IV (08:35)
--- NOTE | 2024-06-06 09:34 | W.PN.HOSP.TC ---
Today's Communication/Plan
-
Give IV 1 gm of magnesium sulfate
Assessment / Plan
Assessment / Plan
Physical Exam
General: Well Developed, Well Nourished and No Apparent Distress
HEENT: Normocephalic, Moist Mucous Membranes and Atraumatic
Respiratory: Clear
Cardiac: S1/S2 and Regular Rhythm; Negative Murmur or Rub
GI: Soft, Non Tender, Non Distended and Normal Bowel Sounds
Rectal: no bleeding
Musculoskeletal: No Clubbing, No Cyanosis and No Edema
Skin: Negative Rash
Neuro: Nonfocal/Grossly Intact
#Ascending colon polyp status post robotic right colectomy
Pain control with Pain medicine
Not passing gas
-NPO
-Dilaudid, Tylenol, for pain
# Anemia combination of chronic blood loss anemia and post op
HGB around 11
Monitor
# Leukocytosis, reactive
No fevers
# hyponatremia, mild
# hypomagnesemia
replace
Will need IV MG sulfate 1 gm.
Cirrhosis
Essential hypertension
-Continue hydrochlorothiazide, lisinopril
CKDIIIA-B B
Chronic anion gap metabolic acidosis
-Renal function at baseline
History of bladder cancer
GERD
-Continue esomeprazole
Full code
DVT prophylaxis�SCDs
Total time spent to see the patient, examine the patient on the floor, review data and lab results, discuss treatment plan with patient, nursing staff around 55 minutes
Anticipated Discharge: > 48 hours
Subjective/Interval History
-
Date of Service: June 06, 2024
NO chest pain
No sob
Mild abd discomfort
Objective Data
-
Labs:
Laboratory Results
06/06/24
04:46
WBC 12.3 H
Hgb 10.8 L
Hct 30.6 L
Plt Count 248
Sodium 132 L
Potassium 4.3
Chloride 96 L
Carbon Dioxide 21 L
BUN 14
Creatinine 1.0
Glucose 158 H
Calcium 8.2 L
Vital Signs:
Vital Signs
Temp Pulse Resp BP Pulse Ox
98.5 F 80 15 129/65 93
06/06/24 07:09 06/06/24 07:09 06/06/24 07:09 06/06/24 07:09 06/06/24 07:09
I&O
06/05/24 06/06/24 06/07/24
06:59 06:59 06:59
Intake Total 495 / 495 960 / 960
Output Total 245 / 245 975 / 975
Balance 250 / 250 -15 / -15
--- NOTE | 2024-06-06 10:40 | W.PN.CRS1 ---
Today's Communication / Plan
-
clears
repeat h/h
sharon mosley
Assessment/Plan
-
POD#1 robotic right colectomy
-hgb 10.8 from 11.4. Likely due to dilutional mixed with acute blood loss anemia. Will repeat h/h at noon.
-OOB as tolerated
-Advance diet to clears
-OR pathology pending
-Will hold on Lovenox for now, will see next h/h
-TEDS/SCDS in place
-Pain control: Tylenol standing, Dilaudid PRN
-D/C mleany
Subjective Data
Procedure
06/05/2024- robotic right colectomy
Subjective Data
Date of Service: June 06, 2024
Patient states she has pain but only when she moves. She has no nausea or vomiting. She has not had bowel function yet. She overall has no complaints.
Objective Data
-
Vital Signs
Temp Pulse Resp BP Pulse Ox
98.5 F 80 15 129/65 93
06/06/24 07:09 06/06/24 07:09 06/06/24 07:09 06/06/24 07:09 06/06/24 08:28
Intake & Output
06/05/24 06/06/24 06/07/24
06:59 06:59 06:59
Intake Total 495 / 495 960 / 960
Output Total 245 / 245 1225 / 1225
Balance 250 / 250 -265 / -265
Intake:
Oral fluids 0 / 0
IV fluids (Total) 495 / 495 960 / 960
Norm 75 / 75
Normosol-R/Plasmalyte-A 1,000 20 / 20
ml @ 80 mls/hr IV .[id number] NO
Rx#:[id number]
Output:
Urine, Mosley 245 / 245 1225 / 1225
Lab Results
06/06/24 04:46
Physical Exam
-
General: No Acute Distress and AOx3
Abdomen: Soft, Non Distended and Tender (incisions c/d/i)
Skin: Warm and Dry
Incision: Clear, Dry, Intact
[2024-06-06 10:50] VITALS: BP 147/78
--- NOTE | 2024-06-06 12:49 | CM ---
Met with pt at bedside
Pt lives alone in a 2 story home; 5 steps to enter, 8 steps to 2nd fl
Independent, driving, active
DME - CPAP
SNF - denies past hx
HH - [facility] in past
Has ride at discharge
PCP - Dr Lewis
Pharm - [facility]
Plan - anticipate home no needs vs w/HH
[2024-06-06 13:03] LABS: Hematocrit 33.1 % (37.0-47.0); Hemoglobin 11.8 g/dL (12.0-16.0)
[2024-06-06] MEDS: MAGNESIUM SULFATE 102 GRAMS IV (14:26)
[2024-06-06 15:06] VITALS: BP 125/67
[2024-06-06] MEDS: DILAUDID 0.5 MG IV (22:48)
[2024-06-06 23:00] VITALS: BP 133/70
[2024-06-07] MEDS: TYLENOL PO (01:00)
[2024-06-07] MEDS: TYLENOL 650 MG PO ×5 (03:15→21:18)
[2024-06-07 05:56] LABS: % Basophils 0.1 % (0-2); % Eosinophils 0.3 % (0-6); % Immature Granulocytes 0.7 % (0-0.5); % Monocytes 9.8 % (1.7-9.3); % Neutrophils 77.1 % (42.2-75.2); Absolute Immature Granulocytes 0.1 10^3/uL (0-0.05); Absolute Lymphocytes 1.2 10^3/uL (1.2-3.4); Absolute Neutrophils 7.8 10^3/uL (1.4-6.5); Hematocrit 28.3 % (37.0-47.0); Mean Corp Hgb Conc. 35.3 g/dL (33.0-37.0); Mean Corpuscular Hgb 32.8 pg (27.0-31.0); Mean Corpuscular Volume 92.8 fL (81.0-99.0); Mean Platelet Volume 9.9 fL (7.4-10.4); Nucleated Red Blood Cells % 0 %; Platelet Count 224 10^3/uL (130-400); Red Blood Cell Count 3.05 10^6/uL (4.20-5.40); Red Cell Dist. Width 13.1 % (11.5-14.5); White Blood Cell Count 10.2 10^3/uL (4.8-10.8)
[2024-06-07 06:00] VITALS: BMI 39.9
[2024-06-07 06:23] LABS: Blood Urea Nitrogen 15 mg/dl (7-17); Calcium 8.4 mg/dl (8.4-10.2); Carbon Dioxide 23 mmol/L (22-30); Chloride 96 mmol/L (98-107); Estimated Creatinine Clearance 64 ml/min; Glucose 128 mg/dl (70-99); Potassium 3.9 mmol/L (3.5-5.1); Sodium 131 mmol/L (135-145); eGFR 59.12
[2024-06-07 07:02] VITALS: BP 140/76
[2024-06-07] MEDS: ENTEREG 12 MG PO ×2 (09:06→21:18)
[2024-06-07] MEDS: ZESTRIL 10 MG PO (09:06)
[2024-06-07] MEDS: PROTONIX 40 MG PO (09:07)
[2024-06-07] MEDS: ORETIC 25 MG PO (09:07)
--- NOTE | 2024-06-07 09:52 | W.PN.HOSP.TC ---
Today's Communication/Plan
-
Recheck blood work in am
encourage ambulation and cut back on pain medications
Add PRN dose of lisinopril as needed
Assessment / Plan
Assessment / Plan
Physical Exam
General: Well Developed, Well Nourished and No Apparent Distress
HEENT: Normocephalic, Moist Mucous Membranes and Atraumatic
Respiratory: Clear
Cardiac: S1/S2 and Regular Rhythm; Negative Murmur or Rub
GI: Soft, Non Tender, Non Distended and Normal Bowel Sounds
Rectal: no bleeding
Musculoskeletal: No Clubbing, No Cyanosis and No Edema
Skin: Negative Rash
Neuro: Nonfocal/Grossly Intact
#Ascending colon polyp status post robotic right colectomy
Pain control with Pain medicine
She tolerated liquids, off NG
-Dilaudid, Tylenol, for pain
# Anemia combination of chronic blood loss anemia and post op
HGB around 11
Monitor
# Leukocytosis, reactive
No fevers
Resolved
# hyponatremia, mild
# hypomagnesemia
replace
Will need IV MG sulfate 1 gm. Recheck in AM
Cirrhosis
Essential hypertension
borderline uncontrolled,d will do PRN extra dose of lisinopril
-Continue hydrochlorothiazide, lisinopril
CKDIIIA-B B
Chronic anion gap metabolic acidosis
-Renal function at baseline
History of bladder cancer
GERD
-Continue esomeprazole
Full code
DVT prophylaxis�SCDs
Total time spent to see the patient, examine the patient on the floor, review data and lab results, discuss treatment plan with patient, nursing staff around 55 minutes
Anticipated Discharge: 24 - 48 hours
Subjective/Interval History
-
Date of Service: June 07, 2024
Doing well
Less abdominal discomfort
She tolerated liquid, no nausea
Objective Data
-
Labs:
Laboratory Results
06/07/24
05:14
WBC 10.2
Hgb 10.0 L
Hct 28.3 L
Plt Count 224
Sodium 131 L
Potassium 3.9
Chloride 96 L
Carbon Dioxide 23
BUN 15
Creatinine 1.0
Glucose 128 H
Calcium 8.4
Vital Signs:
Vital Signs
Temp Pulse Resp BP Pulse Ox
97.6 F 69 15 140/76 98
06/07/24 07:02 06/07/24 09:07 06/07/24 07:02 06/07/24 09:07 06/07/24 07:02
I&O
06/06/24 06/07/24 06/08/24
06:59 06:59 06:59
Intake Total 495 / 495 4460 / 4460
Output Total 245 / 245 1625 / 1625
Balance 250 / 250 2835 / 2835
--- NOTE | 2024-06-07 10:43 | W.PN.CRS1 ---
Today's Communication / Plan
-
advance diet
lidocaine/abdominal binder prn
Assessment/Plan
-
POD#2 robotic right colectomy
-Hgb 10.0 from 11.8. Will trend. Vitals normal.
-OOB as tolerated
-Advance diet to fulls.
-OR pathology pending
-TEDS/SCDS, Lovenox for DVT prophylaxis.
-Pain control: Tylenol standing, Dilaudid PRN
-Abdominal binder and lidocaine patch prn for LUQ pain.
-Anticipate d/c tomorrow
Subjective Data
Procedure
06/05/2024- robotic right colectomy
Subjective Data
Date of Service: June 07, 2024
Patient states she feels 'okay'. Her main complaint is LUQ pain near her incision. She has not had gas or bowel movements yet. She denies nausea or vomiting.
Objective Data
-
Vital Signs
Temp Pulse Resp BP Pulse Ox
97.6 F 69 15 140/76 98
06/07/24 07:02 06/07/24 09:07 06/07/24 07:02 06/07/24 09:07 06/07/24 07:02
Intake & Output
06/06/24 06/07/24 06/08/24
06:59 06:59 06:59
Intake Total 495 / 495 4460 / 4460
Output Total 245 / 245 1625 / 1625
Balance 250 / 250 2835 / 2835
Intake:
Oral fluids 0 / 0 2039 / 2039
IV fluids (Total) 495 / 495 2319 / 2320
Norm 75 / 75
Normosol-R/Plasmalyte-A 1,000 20 / 20
ml @ 80 mls/hr IV .[id number] NO
Rx#:[id number]
IV piggybacks 100 / 100
Output:
Urine, Srivastava 245 / 245 1225 / 1225
Urine, Voided 400 / 400
Other:
Number of approximated MODERATE 3
amounts of urine
Lab Results
06/07/24 05:14
06/07/24 05:14
Physical Exam
-
General: No Acute Distress and AOx3
Abdomen: Soft, Non Distended and Tender (LUQ)
Skin: Warm and Dry
Incision: Clear, Dry, Intact
[2024-06-07] MEDS: LIDOCAINE 4% PATCH 1 PATCH TOPICAL (11:21)
[2024-06-07 14:49] VITALS: BP 126/65
[2024-06-07] MEDS: LOVENOX 40 MG SC (17:26)
[2024-06-07 23:42] VITALS: BP 143/67
[2024-06-08] MEDS: TYLENOL 650 MG PO ×6 (00:36→20:25)
[2024-06-08 05:26] LABS: Hematocrit 27.7 % (37.0-47.0); Hemoglobin 9.6 g/dL (12.0-16.0); Mean Corp Hgb Conc. 34.7 g/dL (33.0-37.0); Mean Corpuscular Hgb 31.3 pg (27.0-31.0); Mean Corpuscular Volume 90.2 fL (81.0-99.0); Mean Platelet Volume 9.9 fL (7.4-10.4); Platelet Count 228 10^3/uL (130-400); Red Blood Cell Count 3.07 10^6/uL (4.20-5.40); White Blood Cell Count 7.8 10^3/uL (4.8-10.8)
[2024-06-08 05:52] LABS: ALT (SGPT) 23 U/L (0-35); AST (SGOT) 24 U/L (14-36); Albumin 3.6 g/dl (3.5-5.0); Alkaline Phosphatase 51 U/L (38-126); Blood Urea Nitrogen 14 mg/dl (7-17); Carbon Dioxide 24 mmol/L (22-30); Chloride 97 mmol/L (98-107); Estimated Creatinine Clearance 58 ml/min; Glucose 102 mg/dl (70-99); Magnesium 1.6 mg/dl (1.6-2.3); Potassium 3.9 mmol/L (3.5-5.1); Sodium 132 mmol/L (135-145); Total Bilirubin 0.7 mg/dl (0.2-1.3); Total Protein 6.1 g/dl (6.3-8.2); eGFR 52.73
[2024-06-08 06:00] VITALS: BMI 40.0
[2024-06-08 08:45] VITALS: BP 151/65
[2024-06-08] MEDS: ENTEREG 12 MG PO ×2 (09:04→20:25)
[2024-06-08] MEDS: LIDOCAINE 4% PATCH 1 PATCH TOPICAL (09:04)
[2024-06-08] MEDS: PROTONIX 40 MG PO (09:05)
[2024-06-08] MEDS: ORETIC 25 MG PO (09:06)
[2024-06-08] MEDS: ZESTRIL 10 MG PO (09:06)
--- NOTE | 2024-06-08 11:07 | W.PN.CRS1 ---
Today's Communication / Plan
-
Pain control
Assessment/Plan
-
POD# 3 robotic right colectomy
-Hgb 9.6 from 10.0. Vitals normal.
-OOB as tolerated
-Tolerating a low residue diet
-OR pathology pending
-TEDS/SCDS, Lovenox for DVT prophylaxis.
-Pain control: Tylenol standing, switched to oxycodone as needed.
-Abdominal binder and lidocaine patch prn for LUQ pain.
-Anticipate d/c tomorrow, patient needs pain control
Subjective Data
Procedure
06/05/2024- robotic right colectomy
Subjective Data
Date of Service: June 08, 2024
Patient states she is left upper quadrant pain. The ice packs really helped with it yesterday. She is eating. She has bowel movements.
Objective Data
-
Vital Signs
Temp Pulse Resp BP Pulse Ox
98.5 F 71 16 151/65 97
06/08/24 08:45 06/08/24 09:06 06/08/24 08:45 06/08/24 09:06 06/08/24 09:00
Intake & Output
06/07/24 06/08/24 06/09/24
06:59 06:59 06:59
Intake Total 4460 / 4460 1680 / 1680
Output Total 1625 / 1625
Balance 2835 / 2835 1680 / 1680
Intake:
Oral fluids 2040 / 2040 1680 / 1680
IV fluids (Total) 2320 / 2320
IV piggybacks 100 / 100
Output:
Urine, Srivastava 1225 / 1225
Urine, Voided 400 / 400
Other:
Number of approximated MODERATE 3 2
amounts of urine
Lab Results
06/08/24 04:43
06/08/24 04:43
Physical Exam
-
General: No Acute Distress and AOx3
Abdomen: Soft, Non Distended and Tender (Left upper quadrant over port incision)
Skin: Warm and Dry
Incision: Clear, Dry, Intact
--- NOTE | 2024-06-08 12:10 | W.PN.HOSP.TC ---
Today's Communication/Plan
-
No objection to dc
ordered oral magnesium
Assessment / Plan
Assessment / Plan
Physical Exam
General: Well Developed, Well Nourished and No Apparent Distress
HEENT: Normocephalic, Moist Mucous Membranes and Atraumatic
Respiratory: Clear
Cardiac: S1/S2 and Regular Rhythm; Negative Murmur or Rub
GI: Soft, Non Tender, Non Distended,normal Bowel Sounds, clean stitches.
Rectal: no bleeding
Musculoskeletal: No Clubbing, No Cyanosis and No Edema
Skin: Negative Rash
Neuro: Nonfocal/Grossly Intact
#Ascending colon polyp status post robotic right colectomy
Pain is controlled
She tolerated diet
Passing gas and had BM
# Anemia combination of chronic blood loss anemia and post op
HGB around 11
Monitored
# Leukocytosis, reactive
No fevers
Resolved
# hyponatremia, mild
# hypomagnesemia
replaced
c/w oral magnesium
Cirrhosis
Essential hypertension
borderline uncontrolled,d will do PRN extra dose of lisinopril
-Continue hydrochlorothiazide, lisinopril
CKDIIIA-B
Chronic anion gap metabolic acidosis
-Renal function at baseline
History of bladder cancer
GERD
-Continue esomeprazole
Full code
DVT prophylaxis�SCDs
Total time spent to see the patient, examine the patient on the floor, review data and lab results, discuss treatment plan with patient, nursing staff around 55 minutes
Anticipated Discharge: Within 24 hours
Subjective/Interval History
-
Date of Service: June 08, 2024
She feels better
No abd pain
No chest pain
Objective Data
-
Labs:
Laboratory Results
06/08/24
04:43
WBC 7.8
Hgb 9.6 L
Hct 27.7 L
Plt Count 228
Sodium 132 L
Potassium 3.9
Chloride 97 L
Carbon Dioxide 24
BUN 14
Creatinine 1.1 H
Glucose 102 H
Calcium 9.0
Total Bilirubin 0.7
AST 24
ALT 23
Alkaline Phosphatase 51
Vital Signs:
Vital Signs
Temp Pulse Resp BP Pulse Ox
98.5 F 71 16 151/65 97
06/08/24 08:45 06/08/24 09:06 06/08/24 08:45 06/08/24 09:06 06/08/24 09:00
I&O
06/07/24 06/08/24 06/09/24
06:59 06:59 06:59
Intake Total 4460 / 4460 1680 / 1680
Output Total 1625 / 1625
Balance 2835 / 2835 1680 / 1680
[2024-06-08 15:13] VITALS: BP 142/78
[2024-06-08] MEDS: LOVENOX 40 MG SC (18:22)
[2024-06-08 23:07] VITALS: BP 125/61
[2024-06-09] MEDS: TYLENOL PO ×2 (01:11→13:10)
[2024-06-09] MEDS: TYLENOL 650 MG PO ×2 (02:58→08:51)
[2024-06-09 06:00] VITALS: BMI 39.3
[2024-06-09 07:03] VITALS: BP 138/78
[2024-06-09] MEDS: ENTEREG 12 MG PO (08:50)
[2024-06-09] MEDS: LIDOCAINE 4% PATCH 1 PATCH TOPICAL (08:50)
[2024-06-09] MEDS: ORETIC 25 MG PO (08:50)
[2024-06-09] MEDS: PROTONIX 40 MG PO (08:50)
[2024-06-09] MEDS: ZESTRIL 10 MG PO (08:51)
[2024-06-09 09:37] LABS: Hematocrit 32.3 % (37.0-47.0); Hemoglobin 10.9 g/dL (12.0-16.0); Mean Corp Hgb Conc. 33.7 g/dL (33.0-37.0); Mean Corpuscular Volume 91.8 fL (81.0-99.0); Mean Platelet Volume 9.8 fL (7.4-10.4); Platelet Count 277 10^3/uL (130-400); Red Blood Cell Count 3.52 10^6/uL (4.20-5.40); Red Cell Dist. Width 12.9 % (11.5-14.5)
[2024-06-09 10:04] LABS: Magnesium 1.1 mg/dl (1.6-2.3)
--- NOTE | 2024-06-09 10:18 | CM ---
Pt seen at bedside. Pt d/c in.
IMM verbally reviewed, copy put into chart.
pt confirmed a friend will transport home
Plan: Home w/ no needs
--- NOTE | 2024-06-09 10:43 | W.PN.CRS1 ---
Today's Communication / Plan
-
discharge
Assessment/Plan
-
POD# 4 robotic right colectomy
-Hgb 10.9 from 9.6. Vitals normal.
-OOB as tolerated
-Tolerating a low residue diet
-OR pathology pending
-TEDS/SCDS, Lovenox for DVT prophylaxis.
-Pain control: Tylenol standing, switched to oxycodone as needed.
-Okay for discharge from our perspective. All discharge instructions discussed with patient. All questions answered.
Subjective Data
Procedure
06/05/2024- robotic right colectomy
Subjective Data
Date of Service: June 09, 2024
Patient states she is feeling better. She has no nausea or vomiting. She is tolerating diet. She has bowel function. Her left upper quadrant pain is improving.
Objective Data
-
Vital Signs
Temp Pulse Resp BP Pulse Ox
98.2 F 78 15 138/78 97
06/09/24 07:03 06/09/24 08:51 06/09/24 07:03 06/09/24 08:51 06/09/24 07:03
Intake & Output
06/08/24 06/09/24 06/10/24
06:59 06:59 06:59
Intake Total 1680 / 1680 1440 / 1440
Balance 1680 / 1680 1440 / 1440
Intake:
Oral fluids 1680 / 1680 1440 / 1440
Other:
Number of approximated MODERATE 2 3
amounts of urine
Number of approximated LARGE 1
amounts of urine
Number of unmeasured liquid
stools
Rectum 1
Lab Results
06/09/24 09:06
06/09/24 08:53
Physical Exam
-
General: No Acute Distress and AOx3
Abdomen: Soft, Non Distended and Tender (mild LUQ- improving)
Skin: Warm and Dry
--- NOTE | 2024-06-09 10:47 | W.DCSUMMARY ---
Discharge Summary
Discharge Data
Date of Admission: 06/05/24
Date of Discharge: 06/09/24
-
Pending Results: Yes
Additional Pending Results:
OR pathology
Hospital Course
73-year-old female presented for a robotic right colectomy due to an ascending colon polyp. This was performed by Dr. Caputo on 06/05/2024. She tolerated the procedure well and was brought back to the medical surgical floor. The following day her
diet was advanced from clears to eventually low residue. She did have some delusional mixed with acute blood loss anemia and her hemoglobin was closely followed. She did complain of left upper quadrant pain which was relieved by Tylenol and a
lidocaine patch. The pain improved by postop day 4. It was determined on postop day 4 the patient to be discharged. All discharge instructions discussed with the patient and all questions were answered. Follow-up in the office with Dr. Caputo in
2 weeks. Pathology was pending at the time of discharge.
Discharge Plan
-
Patient Disposition: Home (Routine Discharge)
Discharge Diagnosis/Procedures: robotic right colectomy
Diet: Low Residue
Activity: No strenuous activity
Additional Activity: No lifting over 10lbs (gallon of milk)
Driving Restrictions: Not until seen by your Dr
Bathing Restrictions: OK to Shower
Wound Care: Allow glue to naturally fall off. Do not pick at incisions.
Instructions: Low Fiber Diet
Referrals:
Barber Caputo MD [Active] - in two weeks
Additional Discharge Medication Instructions: Tylenol or ibuprofen as needed for pain. Maximum dose of Tylenol is 4000 mg in 24 hours. Maximum dose of ibuprofen is 3200 mg in 24 hours.
Prescriptions:
Continued
cyanocobalamin (vitamin B-12) 1,000 mcg Tablet
1,000 mcg PO DAILY
lisinopril 10 mg Tablet
10 mg PO DAILY
hydrochlorothiazide 25 mg Tablet
25 mg PO DAILY
esomeprazole magnesium [Nexium 24HR] 20 mg Capsule,Delayed Release(Dr/Ec)
20 mg PO DAILYPRN PRN (Reason: gerd)
cholecalciferol (vitamin D3) [Vitamin D3] 25 mcg (1,000 unit) Tablet
25 mcg PO DAILY
Tremfya Pen 200 mg/2 mL Pen Injector
200 mg SC Q10W
Discontinued
metronidazole [Flagyl] 500 mg Tablet
500 mg PO PRE OP
neomycin 500 mg Tablet
500 mg PO PRE OP
Sutab 1.479-0.188- 0.225 gram Tablet
0 tab PO PER PKG DIR
Discharge Orders:
Discharge Patient (As Directed); Ordered 06/09/24
Ordered By: Kaila Collier
Discharge Date and Time
Print Language: ALBANIAN
[2024-06-09] MEDS: FLUAD (65 yr+) 2024-2025 FORMULA 0.5 ML IM (11:06)
[2024-06-09 14:52] VITALS: BP 130/61
== END 2024-06-09 15:31 | disposition home or self-care (01) | DRG 330 ==
LOC: 2 SOUTH 06:03
PROVIDERS: Family Medicine; Internal Medicine; Physician Assistant; ADMITTING PHYSICIAN Surgery; OTHER PHYSICIAN Hospitalist
PROC: 0DBF4ZZ Excision of Right Large Intestine, Percutaneous Endoscopic Approach (ICD-10-PCS; 2024-06-06)
DX: K63.5 Polyp of colon (principal); D62 Acute posthemorrhagic anemia; E87.20 Acidosis, unspecified; K91.71 Accidental puncture and laceration of a digestive system organ or structure during a digestive system procedure; E83.42 Hypomagnesemia; I12.9 Hypertensive chronic kidney disease with stage 1 through stage 4 chronic kidney disease, or unspecified chronic kidney disease; K21.9 Gastro-esophageal reflux disease without esophagitis; K74.60 Unspecified cirrhosis of liver; N18.32 Chronic kidney disease, stage 3b; Z85.51 Personal history of malignant neoplasm of bladder
CPT/HCPCS: 88307; 80048; 80053; 83735; 85014; 85018; 85025; 85027; 86850; 86900; 86901; 88342; 90662; G0008; J1335

== ENCOUNTER 2024-07-02 10:02 | Inpatient (IN) | payer MEDICARE, OTHER, SELFPAY ==
[2024-07-01] VITALS (9 sets, daily range): BP systolic 106–160; BP diastolic 63–86; BMI 37.1; BMI 37.5
--- NOTE | 2024-07-01 13:28 | ED.GENMED ---
History of Present Illness
General
Chief Complaint: Dizziness
Source: patient
Exam Limitations: none
Time Seen by Provider: 07/01/24 12:56
Nursing documentation reviewed up to this point in time: agreed with
History of Present Illness
History of Present Illness:
Patient is a 73-year-old female with a history of hypertension on lisinopril/HCTZ who was found to have an ascending colon mass in the proximal to mid transverse colon that was obstructing and required a partial colon resection on 10�[address] Caputo
who presents for episodes of lightheadedness ever since being discharged. Patient says prior to the surgery she had had pain and was seen in the ER and was found to have this mass. She was admitted and placed on a clear diet but she really has not
had solid food since the week before her surgery. She is continue to have very limited low residue diet and is drinking water mostly with some times Gatorade and other electrolytes but mostly just water. She says ever since being discharged she
has been feeling lightheadedness especially with standing up and walking around. She saw Dr. Caputo about 2 weeks ago as a follow-up who thought that her incisions looked well and she mention the symptoms of lightheadedness which she said was
typical for being postop this major surgery. Patient says in the last 3 days specifically she has gotten much worse where she is visibly tremulous when she stands, very lightheaded gets very winded and feels like she is going to pass out. She also
feels like the room is slightly spinning. Patient has required the use of a walker to walk today which is very unusual for her. She has not had any fever, vomiting, diarrhea, her stool is normal color, she is not having any black stool, she has
never been anemic. While in the hospital she was hypomagnesemic and given repletion. Patient says she was on mag oxide on discharge but it was causing her diarrhea so they told her to stop it.
Past History
Past History
ED Past Medical History: HTN and Other (obesity)
ED Past Surgical History: Bowel resection
Social History
Tobacco: Non-smoker
Alcohol: None
Drug: None
Personal: Single
Living: with family
Review of Systems
Review of Systems
Allergies reviewed?: Yes
All Other Systems: Not applicable
Phy Exam
Physical Exam
Physical Exam:
GENERAL: Alert , in no apparent distress, she appears hydrated
EYE: pupils equal and reactive
NECK: Supple
ENT: o/p clr, mmm.
CARDIAC: Regular rate and rhythm .
LUNGS: Clear breath sounds bilaterally, no acute respiratory distress, no wheezes/rales/rhonchi
ABDOMEN: Soft, mild left-sided upper abdominal tenderness, incision sites are very well-healed and have no surrounding erythema no r/g, no cvat, normal bowel sounds
NEUROLOGICAL: Alert and oriented, no focal neuro deficits
SKIN: Warm and dry, skin intact.
MUSCULOSKELETAL: No edema, well perfused. neg stevo's sign
PSYCH: Normal and appropriate interaction.
Note with standing the patient became tachypneic, shaky, tachycardic, very lightheaded
Course
Orders/Labs/Results
Orders:
Orders
07/01/24 Lunch
Regular
At Your Request: Limited Participation
Does patient need a safe tray?: No
07/01/24 12:30
Electrocardiogram (*1) Urgent
Reason for Study: Chest Pain
EKG- Treatment ONCE
07/01/24 13:24
Cardiac Monitoring- Treatment ONCE
07/01/24 13:26
Urinalysis Reflex To Culture Urgent
Date Specimen was Collected: 07/01/24
Time Specimen was Collected: 20:49
07/01/24 13:59
Complete Blood Count/With Diff Urgent
Comprehensive Metabolic Panel Urgent
Magnesium Urgent
Phosphorus Urgent
Serum Osmolality Urgent
TSH Reflex To Free T4 Urgent
Troponin I Urgent
Vitamin B12 Urgent
07/01/24 14:44
Magnesium Sulfate 2 Gram/50 ml [Magnesium Sulfate] 2 gram in 50 ml IV NOW
07/01/24 14:46
Calcium Gluconate 1 gram/100mL [Calcium Gluconate] 1 gram in 100 ml IV ONCE
Potassium Chloride Powder [Klor-Con] 20 meq PO NOW STA
07/01/24 15:02
Ionized Calcium Urgent
PTH [Intact PTH Includes Calcium] Urgent
07/01/24 15:52
Admit/Transfer Patient As Directed
Co-Sign Provider:
Level of Care: Observation services
Assign to:: Telemetry
Physician / Group: Arcadio Fall
Diagnosis: LAUREN/Electrolyte depletion
Reason for Telemetry: Syncope
Date to Stop Telemetry: 07/03/24
Time to Stop Telemetry: 11:00
PRN Pain Medication Management As Directed
May give lesser potent ordered pain med per pt: Yes
preference::
Protocol:: Medication orders for pain may be administered in a
manner that supports deferring to patient preference
when the pt is:
- Requesting an ordered lesser potent pain medication.
Least to most potent pain medications are defined
as: acetaminophen < NSAID < tramadol < opioids
(morphine, oxycodone, hydromorphone).
- Requesting a lesser dose of the same medication IF
ORDERED.
- Requesting a less intrusive route of administration
if both routes are prescribed by the provider (PO <
IV).
07/01/24 15:53
Code Status As Directed
Resuscitation Status: Full Code
07/01/24 17:03
0.9% Sodium Chloride 1000 ml [Nss] 1,000 ml IV 80 mls/hr
Acetaminophen [Tylenol] 650 mg PO Q4HPRN PRN
07/01/24 17:03
Activity As Directed
Activity Level: With Assistance
Pneumatic Compression Sleeves As Directed
Type: Knee high
Vital Signs As Directed
Frequency: Per unit guidelines
DX Deep Vein Thrombosis Video Routine
07/01/24 22:00
BMP [Basic Metabolic Panel] Urgent
Magnesium Urgent
07/02/24 06:00
Basic Metabolic Panel IN AM
Complete Blood Count/No Diff IN AM
Magnesium IN AM
07/03/24 06:00
Basic Metabolic Panel IN AM
Complete Blood Count/No Diff IN AM
Magnesium IN AM
07/03/24 11:00
DC Protocol for Telemetry ONCE
Abnormal Lab Results
07/01/24 07/01/24
13:59 15:02
RBC 3.59 L 10^6/uL
(4.20-5.40)
Hgb 11.3 L g/dL
(12.0-16.0)
Hct 32.1 L %
(37.0-47.0)
MCH 31.5 H pg
(27.0-31.0)
Absolute Lymphs (auto) 1.1 L 10^3/uL
(1.2-3.4)
Lymphocytes % 19.3 L %
(20.5-51.1)
Monocytes % 9.7 H %
(1.7-9.3)
Eosinophils % 8.5 H %
(0-6)
Potassium 3.1 L mmol/L
(3.5-5.1)
BUN 19 H mg/dl
(7-17)
Creatinine 1.2 H mg/dL
(0.6-1.0)
Glucose 132 H mg/dl
(70-99)
Calcium 6.6 L* mg/dl 6.4 L* mg/dl
(8.4-10.2) (8.4-10.2)
Ionized Calcium 0.75 L mMOL/L
(1.15-1.33)
Magnesium 0.3 L* mg/dl
(1.6-2.3)
Total Bilirubin 1.4 H mg/dl
(0.2-1.3)
07/01/24 13:59
07/01/24 13:59
Vital Signs
Initial and Last Documented VS:
Initial Vital Signs
Temp Pulse Resp BP Pulse Ox
98.0 F 87 20 125/86 98
07/01/24 12:38 07/01/24 12:38 07/01/24 12:38 07/01/24 12:38 07/01/24 12:38
Last Documented Vital Signs
Temp Pulse Resp BP Pulse Ox
97.9 F 77 18 120/63 98
07/01/24 19:00 07/01/24 19:00 07/01/24 19:00 07/01/24 19:00 07/01/24 19:00
MDM/Problems Addressed
Differential Diagnosis Includes:
electrolyte disturbance, orthostasis, dehydration, anxiety, vitamin deficiency, anemia
MDM/Problems Addressed:
73 y/o F h/o htn
colon resection 3 weeks ago ford for ascending colon mass; has been on restrictive diet, hasn't had much appetite;
has had orthostatic lightheadedness since surgery, worse x 3 days, shaking with standing, feels tremulous, nhear syncope, tingling in fingers when she stands
stable vitals
orthostatics - bp stable but HR elevates from 80 to 120 standing and pt was shaky and hyperventilating standing up
abdomen incisions healed
hypomag severe and hypocalcemia 6.6; k mild 3.1
ekg normal qtc and qrs;
no seizures/awake/alert
i ordered ionized ca, pth, and she is getting calcium, k and mag
*Critical Care Note
Total Time (30-74mins, 75-104mins- exclusive of procedures): Not Applicable
ED Attending Note
-
Portions of this chart may have been created with voice recognition software.� Occasional wrong word or��sound alike� substitutions may have occurred due to the inherent limitations of voice recognition software.
Discharge Plan
Departure
Patient Disposition: Admit
Date of Disposition: 07/01/24
Time of Disposition: 14:48
Admit to: IMU
Presentation/result/management discussed w/ accepting MD/DO: Hospitalist
Condition: Fair
Covid-19: Not Applicable
Discharge Problem:
Hypomagnesemia, Hypocalcemia
Interventions
Interventions:
*Risk Screen - Suicide Last Done: 07/01/24 12:46
*General Assessment Last Done: 07/01/24 13:44
*Neglect/Abuse Screening Last Done: 07/01/24 12:46
ED- Fall Risk Assessment Last Done: 07/01/24 13:44
*ED COVID-19 Vaccine History Last Done: 07/01/24 12:38
*Nursing Disposition Last Done: 07/01/24 16:58
ED- Neurological Assessment Last Done: 07/01/24 13:44
ED- Cardiac Assessment Last Done: 07/01/24 13:44
ED Swallowing Screen Last Done: 07/01/24 13:44
Discharge Date and Time
Discharge Date/Time: 07/01/24 16:58
[2024-07-01 14:17] LABS: % Basophils 0.5 % (0-2); % Eosinophils 8.5 % (0-6); % Immature Granulocytes 0.5 % (0-0.5); % Lymphocytes 19.3 % (20.5-51.1); % Monocytes 9.7 % (1.7-9.3); % Neutrophils 61.5 % (42.2-75.2); Absolute Eosinophils 0.5 10^3/uL (0-0.7); Absolute Lymphocytes 1.1 10^3/uL (1.2-3.4); Absolute Monocytes 0.6 10^3/uL (0.1-0.6); Absolute Neutrophils 3.6 10^3/uL (1.4-6.5); Hematocrit 32.1 % (37.0-47.0); Hemoglobin 11.3 g/dL (12.0-16.0); Mean Corp Hgb Conc. 35.2 g/dL (33.0-37.0); Mean Corpuscular Hgb 31.5 pg (27.0-31.0); Mean Corpuscular Volume 89.4 fL (81.0-99.0); Mean Platelet Volume 10.1 fL (7.4-10.4); Nucleated Red Blood Cells % 0 %; Platelet Count 204 10^3/uL (130-400); Red Blood Cell Count 3.59 10^6/uL (4.20-5.40); Red Cell Dist. Width 12.7 % (11.5-14.5); White Blood Cell Count 5.9 10^3/uL (4.8-10.8)
[2024-07-01 14:25] LABS: Osmolality Serum 291 mOsm/kg (275-300)
[2024-07-01 14:34] LABS: ALT (SGPT) 25 U/L (0-35); AST (SGOT) 34 U/L (14-36); Albumin 4.7 g/dl (3.5-5.0); Alkaline Phosphatase 49 U/L (38-126); Blood Urea Nitrogen 19 mg/dl (7-17); Calcium 6.6 mg/dl (8.4-10.2); Carbon Dioxide 22 mmol/L (22-30); Chloride 101 mmol/L (98-107); Estimated Creatinine Clearance 53 ml/min; Glucose 132 mg/dl (70-99); Magnesium 0.3 mg/dl (1.6-2.3); Phosphorus 3.4 mg/dl (2.5-4.5); Potassium 3.1 mmol/L (3.5-5.1); Sodium 142 mmol/L (135-145); Total Bilirubin 1.4 mg/dl (0.2-1.3); Total Protein 7.7 g/dl (6.3-8.2)
[2024-07-01 14:39] LABS: Troponin I < 0.012 ng/ml
--- NOTE | 2024-07-01 14:54 | HPS.HSE ---
Family Physician
-
Family Physician: Barber Calderon
Chief Complaint
-
Dizziness
History of Present Illness
Patient is a 73-year-old female with past medical history significant for hypertension and adenocarcinoma of colon. Following colectomy [address] Caputo patient has had postural lightheadedness. Over past 3 days symptoms have got
significantly worse and was accompanied by nausea. Patient states that once diet increased 3 weeks ago her appetite has been limited and her PO intake has been minimal. She states she is lightheaded with any movement. She denies any fever, chills,
chest pain, shortness of breath, vomiting, diarrhea, constipation or urinary symptoms.
Medical History
Past Medical History
Past Medical History: Reports Other
Additional Past Medical History:
Hypertension
Adenocarcinoma of colon
Psoriasis
Past Surgical History: Reports Other
Additional Past Surgical History:
Colectomy (06/05/2024)
Femur fx repair
Social History
Tobacco: Former Smoker (quit 50 years ago)
Alcohol: None
Drug: None
Personal: Single
Living: Alone
Employment: Employed
Family History
Family History: Not pertinent
Allergies / Home Medications
Allergies reflects when Allergies were last updated in [email or web address].
Home Medications with original date entered in [email or web address]
Allergy/Medication List:
Allergies
Allergy/AdvReac Type Severity Reaction Status Date / Time
penicillin G Allergy Hives Verified 07/01/24 12:45
Penicillins Allergy Hives Verified 07/01/24 12:45
Home Medications
cholecalciferol (vitamin D3) 25 mcg (1,000 unit) tablet (Vitamin D3) 25 mcg PO DAILY Supplement 05/28/24
cyanocobalamin (vitamin B-12) 1,000 mcg tablet 1,000 mcg PO DAILY Supplement 05/28/24
hydrochlorothiazide 25 mg tablet 25 mg PO DAILY Blood Pressure 05/28/24
lisinopril 10 mg tablet 10 mg PO DAILY Blood Pressure 05/28/24
guselkumab 200 mg/2 mL subcutaneous pen injector (Tremfya Pen) 200 mg SC Q8W ulcerative colitis 06/03/24
acetaminophen 325 mg tablet (Tylenol) 650 mg PO Q6HPRN PRN mild pain 07/01/24
Review of Systems
-
History Source: Patient
Constitutional: Reports Weight Loss, Fatigue and Other (lightheadedness)
EENT: Reports No Symptoms
Respiratory: Reports No Symptoms
Cardiac: Reports No Symptoms
Abdomen/GI: Reports Nausea
: Reports No Symptoms
Musculoskeletal: Reports No Symptoms
Skin: Reports No Symptoms
Neurological: Reports Dizzy
Endocrine: Reports No Symptoms
Hematologic/Lymphatic: Reports No Symptoms
Psych: Reports No Symptoms
Physical Exam
Vital Signs
Vital Signs
Temp Pulse Resp BP Pulse Ox
98.0 F 77 17 112/84 97
07/01/24 12:38 07/01/24 14:15 07/01/24 14:15 07/01/24 14:02 07/01/24 14:15
Physical Exam
General: Well Developed, Well Nourished, No Apparent Distress, Comfortable and Conversant
HEENT: NormoCephalic, Moist mucous membranes and Atraumatic
Respiratory: Clear and Non Labored Respirations; No Wheezes, Rales, Rhonchi or Crackles
Cardiac: S1/S2 and Regular Rhythm; No Murmur, Rub or Gallop
Breast: Deferred by me
GI: Soft, Non Tender, Non Distended and Normal Bowel Sounds; No Organomegaly
Rectal: Deferred by Provider
Genito-urinary: Deferred by me
Musculoskeletal: No Clubbing, No Cyanosis and No Edema
Skin: Warm; No Dry or Rash
Neuro: Awake, Alert, AO x 3 and Nonfocal/grossly intact
Hematologic/Lymphatic: No Lymphadenopathy
Psych: Calm and Intact Judgment/Insight
Laboratory Results
-
07/01/24 13:59
07/01/24 13:59
Laboratory Results
Total Bilirubin 1.4 mg/dl (0.2-1.3) H 07/01/24 13:59
AST 34 U/L (14-36) 07/01/24 13:59
ALT 25 U/L (0-35) 07/01/24 13:59
Alkaline Phosphatase 49 U/L (38-126) 07/01/24 13:59
Troponin I < 0.012 ng/ml 07/01/24 13:59
Data Reviewed
-
Medical Tests (Nuc Med, Echo, EKG etc): Report Reviewed by me (EKG: NORMAL SINUS RHYTHM)
Lab Data: Labs Reviewed by me (BUN 19, Creat 1.2, K+ 3.1, Ca 6.6, Mag 0.3)
Impression/Plan
-
IMPRESSION/PLAN:
#LAUREN/Symptomatic electrolyte depletion
- Admit to Telemetry for observation
- BUN 19/Creat 1.2
- Hypokalemia 3.1; IV KCl 20
- Hypomagnesemia 0.3 - IV Magnesium 2gm
- Hypocalcemia 6.6 - IV Calcium Gluconate 1gm
- IV NS 80cc/hr
- Monitor BMP q6
- hold lisinopril, discontinue HCTZ
- Fall precaution
#Hypertension
- hold Lisinopril
- discontinue hydrochlorothiazide
#Psoriasis
- continue Tremfya at home
Full Code
DVT Px: SCDs
[2024-07-01] MEDS: KLOR-CON 20 MEQ PO (14:59)
[2024-07-01] MEDS: MAGNESIUM SULFATE 50 IV (15:09)
[2024-07-01] MEDS: CALCIUM GLUCONATE 100 IV (15:09)
--- NOTE | 2024-07-01 15:14 | W.PN.UPDATE ---
Update Note
Progress Note Update
This note serves as an addendum to the H&P by pull over machine operator BRANDI Abbie Bruce
HPI
73F HX Psoariasis s/p Rt colectomy 3 weeks ago on 06/05/[address] Caputo for ascending colon polyps pw poor appetite and postural lightheadedness. POS Postural hypotension.
HX HTN on HCTZ and Lisinopril .On SQ Tremfya( Risankizumab) for psoriasis
VS:
Reactively hypotensive
POS Postural hypotension.
Labs:
pre renal LAUREN
Hypokalemia.
Profound Hypomagemesemia.
Severe Hypocalcemia.
Unremarkable EKG.
QTc Int : 446 ms
NORMAL SINUS RHYTHM
NONSPECIFIC ST AND T WAVE ABNORMALITY
ABNORMAL ECG
WHEN COMPARED WITH ECG OF 30-MAY-2024 15:17,
NO SIGNIFICANT CHANGE WAS FOUND
ASSESSMENT & PLAN
Pre renal LAUREN
Symptomatic electrolyses depletion
Hypokalemia - IV KCL 20
Profound Hypomagnesemia- s/p 2 gm IV Mg
Severe Hypocalcemia- s/p IV 1gm Italo
HX Hypokalemia.
HX Hypomagnesemia.
- Repeat K, C, Mg in 5 hrs and correct agoian as needed
- IV NS @ 80/H
- DC HCTZ
- Hold Lisinopril
- Fall precaution
HX Psoriasis on SQ Tremfya q12 wkks
Relative hypotension due to volume contraction
Essential hypertension
borderline uncontrolled,d will do PRN extra dose of lisinopril
- DC hydrochlorothiazide
- Hold lisinopril
CKD3
Chronic anion gap metabolic acidosis
- Renal function at baseline
S/P s/p Rt colectomy 3 weeks ago on 06/05/[address] Caputo for ascending colon polyps
HX bladder cancer
DVT Px: SCD
Full
Ip TLM
[2024-07-01 15:17] LABS: Vitamin B12 929 pg/ml (239-931)
[2024-07-01 15:21] LABS: Ionized Calcium 0.75 mMOL/L (1.15-1.33)
[2024-07-01 16:03] LABS: TSH Reflex To Free T4 1.37 uIU/ml (0.47-4.68)
[2024-07-01 16:16] LABS: Calcium 6.4 mg/dl (8.4-10.2)
[2024-07-01] MEDS: NSS 1000 IV (17:40)
[2024-07-01] MEDS: TYLENOL 650 MG PO (21:16)
[2024-07-01 21:26] LABS: Urine Albumin Negative (Neg - Trace); Urine Bilirubin Negative (Negative); Urine Character Clear (Clear); Urine Color Yellow; Urine Glucose Negative (Negative); Urine Ketone Negative (Negative); Urine Leukocyte 1+ (Negative); Urine Nitrite Negative (Negative); Urine Occult Blood Negative (Negative); Urine Specific Gravity 1.015 (<1.030); Urine Urobilinogen Negative (Neg - 1+)
[2024-07-01 21:35] LABS: Urine Red Blood Cell 0-2 /HPF (0-2); Urine Squamous Cell >30 /LPF (Few)
[2024-07-01 21:36] LABS: Urine Bacteria Many (Negative)
[2024-07-01 23:26] LABS: Blood Urea Nitrogen 19 mg/dl (7-17); Calcium 6.8 mg/dl (8.4-10.2); Carbon Dioxide 20 mmol/L (22-30); Chloride 104 mmol/L (98-107); Estimated Creatinine Clearance 57 ml/min; Glucose 113 mg/dl (70-99); Magnesium 0.9 mg/dl (1.6-2.3); Potassium 3.5 mmol/L (3.5-5.1); Sodium 138 mmol/L (135-145); eGFR 52.73
[2024-07-01] MEDS: MELATONIN 3 MG PO (23:30)
[2024-07-02] MEDS: CALCIUM GLUCONATE 100 IV (00:29)
[2024-07-02] MEDS: MAGNESIUM SULFATE 50 IV (01:20)
[2024-07-02 03:28] VITALS: BP 154/84
[2024-07-02 07:30] VITALS: BP 147/78
[2024-07-02] MEDS: TYLENOL 650 MG PO (08:19)
[2024-07-02] MEDS: NSS 1000 IV ×2 (08:19→21:30)
[2024-07-02 08:42] LABS: Hematocrit 31.6 % (37.0-47.0); Hemoglobin 10.9 g/dL (12.0-16.0); Mean Corp Hgb Conc. 34.5 g/dL (33.0-37.0); Mean Corpuscular Hgb 32.5 pg (27.0-31.0); Mean Corpuscular Volume 94.3 fL (81.0-99.0); Mean Platelet Volume 10.5 fL (7.4-10.4); Platelet Count 191 10^3/uL (130-400); Red Blood Cell Count 3.35 10^6/uL (4.20-5.40); Red Cell Dist. Width 12.7 % (11.5-14.5); White Blood Cell Count 5.1 10^3/uL (4.8-10.8)
[2024-07-02 09:06] LABS: Blood Urea Nitrogen 16 mg/dl (7-17); Calcium 7.2 mg/dl (8.4-10.2); Carbon Dioxide 22 mmol/L (22-30); Chloride 102 mmol/L (98-107); Estimated Creatinine Clearance 63 ml/min; Glucose 119 mg/dl (70-99); Magnesium 1.6 mg/dl (1.6-2.3); Potassium 3.2 mmol/L (3.5-5.1); Sodium 142 mmol/L (135-145); eGFR 59.12
--- NOTE | 2024-07-02 10:04 | W.PN.HOSP.TC ---
Today's Communication/Plan
-
Monitor oral intake
Replete potassium and magnesium
Wean off IV fluids after current bag.
Assessment / Plan
Assessment / Plan
Impression:
Acute kidney injury
Metabolic acidosis
Hypokalemia
Hypomagnesemia
Hypocalcemia
Other conditions:
Recent right hemicolectomy for colonic mass.
Psoriasis.
Hypertension.
?CKD
'Chronic metabolic acidosis
Cirrhosis by imaging.
Obesity due to excessive calories with BMI of 37
Plan:
Acute kidney injury with symptomatic electrolyte depletion.
Suspected relatively decreased oral intake since recent surgery as well as effect of hydrochlorothiazide and lisinopril.
Electrolytes and renal function, metabolic acidosis improving with IV hydration and electrolyte repletion.
Monitor oral intake
Wean off IV fluids
Continue holding HCTZ and lisinopril.
Monitor blood pressure trend
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 Patient is not following with nephrology as outpatient.
Essential hypertension
Monitor blood pressure trend while off HCTZ and lisinopril.
Recent right hemicolectomy for colonic mass
Imaging no evidence for metastasis
Psoriasis
On Tremfya
Cirrhosis by imaging.
Recent hepatitis serology negative.
Check hemoglobin A1c.
Will need outpatient follow-up with gastroenterology for further workup.
Anticipated Discharge: 24 - 48 hours
Subjective/Interval History
-
Date of Service: July 02, 2024
Objective Data
-
Labs:
Laboratory Results
07/01/24 07/02/24
22:39 07:25
WBC 5.1
Hgb 10.9 L
Hct 31.6 L
Plt Count 191
Sodium 138 142
Potassium 3.5 3.2 L
Chloride 104 102
Carbon Dioxide 20 L 22
BUN 19 H 16
Creatinine 1.1 H 1.0
Glucose 113 H 119 H
Calcium 6.8 L* 7.2 L
Vital Signs:
Vital Signs
Temp Pulse Resp BP Pulse Ox
98.4 F 69 16 147/78 100
07/02/24 07:30 07/02/24 07:30 07/02/24 07:30 07/02/24 07:30 07/02/24 07:30
I&O
07/01/24 07/02/24 07/03/24
06:59 06:59 06:59
Intake Total 480 / 480
Balance 480 / 480
Physical Exam
-
General: No Apparent Distress
HEENT: Normocephalic and Atraumatic
Respiratory: Negative Wheezes
Cardiac: Regular Rhythm and S1/S2
GI: Soft and Nontender
Musculoskeletal: No Edema
Neuro: AO x 3
Hematologic / Lymphatic: No Lymphadenopathy
Psych: Calm
[2024-07-02] MEDS: KCL 40 MEQ PO (10:18)
[2024-07-02] MEDS: MAGNESIUM OXIDE 500 MG PO ×2 (10:19→20:12)
[2024-07-02 11:30] VITALS: BP 101/66
[2024-07-02 15:00] VITALS: BP 128/63
[2024-07-02 15:57] LABS: Intact PTH 43.4 pg/ml (13.6-85.8)
[2024-07-02 19:35] VITALS: BP 146/77
[2024-07-02 23:23] VITALS: BP 126/67
[2024-07-03 03:11] VITALS: BP 127/62
[2024-07-03] MEDS: TYLENOL 650 MG PO ×2 (04:07→12:07)
[2024-07-03 07:34] LABS: Hematocrit 27.9 % (37.0-47.0); Hemoglobin 9.6 g/dL (12.0-16.0); Mean Corp Hgb Conc. 34.4 g/dL (33.0-37.0); Mean Platelet Volume 10.3 fL (7.4-10.4); Platelet Count 171 10^3/uL (130-400); Red Cell Dist. Width 12.7 % (11.5-14.5)
[2024-07-03 07:55] VITALS: BP 117/63
[2024-07-03 08:06] LABS: Blood Urea Nitrogen 14 mg/dl (7-17); Calcium 7.2 mg/dl (8.4-10.2); Carbon Dioxide 21 mmol/L (22-30); Chloride 105 mmol/L (98-107); Estimated Creatinine Clearance 70 ml/min; Glucose 116 mg/dl (70-99); Magnesium 1.6 mg/dl (1.6-2.3); Sodium 140 mmol/L (135-145); eGFR > 60.00
[2024-07-03] MEDS: MAGNESIUM OXIDE 500 MG PO (08:40)
[2024-07-03 12:13] VITALS: BP 134/75
--- NOTE | 2024-07-03 14:38 | CM ---
CM met with pt at bedside to complete IA. She lives alone in a 2 story home with 5 entry steps; 8 steps to 2nd level.
[employer] she has been [employer] and [employer], drives and active.
DME - CPAP
HH - [facility] in past; declined need at this time.
Plan: Discharge to home with no needs.
PCP - Dr Lewis
Pharm - [facility]
--- NOTE | 2024-07-03 16:00 | W.DS.TRANS ---
DC Summary - [employer]
-
Discharge Instructions:
Discharge Diagnosis/Procedures Impression:
Acute kidney injury
Metabolic acidosis
Hypokalemia
Hypomagnesemia
Hypocalcemia
Other conditions:
Recent right hemicolectomy for colonic mass.
Psoriasis.
Hypertension.
?CKD
'Chronic metabolic acidosis
Cirrhosis by imaging.
Obesity due to excessive calories with BMI of 37
Diet Regular
Instructions:
Stand-Alone Forms:
Changes to Home Medications: Yes
Discharge Medications:
DC Medications w/original date entered in [employer]
cholecalciferol (vitamin D3) 25 mcg (1,000 unit) tablet (Vitamin D3) 25 mcg PO DAILY Supplement 05/28/24
cyanocobalamin (vitamin B-12) 1,000 mcg tablet 1,000 mcg PO DAILY Supplement 05/28/24
lisinopril 10 mg tablet 10 mg PO DAILY Blood Pressure 05/28/24
guselkumab 200 mg/2 mL subcutaneous pen injector (Tremfya Pen) 200 mg SC Q8W ulcerative colitis 06/03/24
acetaminophen 325 mg tablet (Tylenol) 650 mg PO Q6HPRN PRN mild pain 07/01/24
Home Medication Changes
Hydrochlorothiazide discontinued
Pending Results: No
[2024-07-03 18:57] LABS: Hepatitis C Antibody Negative (Negative)
== END 2024-07-03 15:21 | disposition home or self-care (01) | DRG 683 ==
LOC: 4 EAST ACU 10:02
PROVIDERS: Nurse Practitioner Family; Physician Assistant; ADMITTING PHYSICIAN Internal Medicine; ATTENDING PHYSICIAN Internal Medicine; EMERGENCY PHYSICIAN Emergency Medicine; FAMILY PHYSICIAN Family Medicine
DX: N17.9 Acute kidney failure, unspecified (principal); C18.9 Malignant neoplasm of colon, unspecified; E87.22 Chronic metabolic acidosis; E83.42 Hypomagnesemia; E83.51 Hypocalcemia; E87.6 Hypokalemia; L40.9 Psoriasis, unspecified; I12.9 Hypertensive chronic kidney disease with stage 1 through stage 4 chronic kidney disease, or unspecified chronic kidney disease; N18.30 Chronic kidney disease, stage 3 unspecified; K74.60 Unspecified cirrhosis of liver; E66.09 Other obesity due to excess calories; Z87.891 Personal history of nicotine dependence; Z85.51 Personal history of malignant neoplasm of bladder; Z68.37 Body mass index [BMI] 37.0-37.9, adult
CPT/HCPCS: 80048; 80053; 81003; 81015; 82330; 82607; 83735; 83930; 83970; 84100; 84443; 84484; 85025; 85027; 86803; 87086; 93005; 96365; 96366; 96375; 99285

== ENCOUNTER → 2024-07-17 14:58 | Outpatient (REF) | payer MEDICARE, OTHER, SELFPAY ==
[2024-07-17 16:07] LABS: Magnesium 0.9 mg/dl (1.6-2.3)
== END ==
LOC: REG 14:58
PROVIDERS: ATTENDING PHYSICIAN Family Medicine; OTHER PHYSICIAN Surgery
DX: E61.2 Magnesium deficiency (principal)
CPT/HCPCS: 36415; 83735

== ENCOUNTER 2024-07-24 19:38 | Emergency (ER) | payer MEDICARE, OTHER, SELFPAY ==
[2024-07-24 19:40] VITALS: BP 174/102
[2024-07-24 20:08] VITALS: BP 146/86
--- NOTE | 2024-07-24 20:40 | ED.GENMED ---
History of Present Illness
General
Chief Complaint: Abnormal Lab Value
Source: patient and records
Time Seen by Provider: 07/24/24 20:04
History of Present Illness
History of Present Illness:
73-year-old female with past medical history of hypertension, hyperlipidemia, status post colon resection done on June 05 for colonic mass, has been doing mostly well postoperatively however was admitted few weeks ago for hypomagnesemia,
hypocalcemia and hypokalemia presenting back to the emergency department today after she had a magnesium level checked earlier today which came back low at 0.9. Patient states that the last time she had the symptoms she was tremulous, very weak
and felt quite unwell but today she states she feels 'great'. Patient had a follow-up visit with her colorectal surgeon, Dr. Caputo, last week and her surgical incision sites were all well-healing and she states everything was going well. Patient
does note that she has been taking 500 mg of magnesium p.o. but does state this is giving her diarrhea. She also notes she was taken off of her diuretic for the potassium level. Notes that the calcium and potassium levels were not today.
Past History
Past History
ED Past Medical History: Cancer, HTN, Hypercholesterolemia and Other (obesity)
ED Past Surgical History: Appendectomy, Bowel resection and Orthopedic
Social History
Tobacco: Non-smoker
Alcohol: None
Drug: None
Personal:
Living: with family
Review of Systems
Review of Systems
All Other Systems: ROS reviewed and negative except as documented in HPI and ROS
Phy Exam
Physical Exam
Physical Exam:
GENERAL: Alert , in no apparent distress, smiling and pleasant
EYE: clear conjunctiva b/l
HEAD: NCAT
ENT: mmm.
CARDIAC: Regular rate and rhythm .
LUNGS: Clear breath sounds bilaterally, no acute respiratory distress, no wheezes/rales/rhonchi
ABDOMEN: Soft, without focal tenderness, no r/g, no cvat, well-healed surgical incisions
NEUROLOGICAL: Alert and oriented
SKIN: Warm and dry, skin intact.
MUSCULOSKELETAL: No edema, well perfused.
PSYCH: Normal and appropriate interaction.
Scores
Heart Failure Risk
Heart Failure Risk Score: Not Applicable
Heart Score for Chest Pain Patients
STEMI patient?: Not applicable
Withdrawal Assessment of Alcohol
Withdrawal Assessment Completed?: Not applicable
Course
Orders/Labs/Results
Orders:
Orders
07/24/24 19:45
EKG [Electrocardiogram (*1)] Urgent
Reason for Study: Other
Other Reason for Exam: low mag
EKG- Treatment ONCE
07/24/24 20:38
Complete Blood Count/With Diff Urgent
Comprehensive Metabolic Panel Urgent
Ionized Calcium Urgent
Magnesium Urgent
Parathyroid Hormone [Intact PTH Includes Calcium] Urgent
Phosphorus Urgent
Comment: ADD ON
07/24/24 21:05
Potassium Chloride [KCl] 40 meq PO NOW STA
07/24/24 21:08
Add On- LAB Urgent
Tests Added?: phosphorous
07/24/24 21:13
Magnesium Sulfate 4 Gram/100Ml [Magnesium Sulfate] 4 gram in 100 ml IV NOW
07/24/24 21:35
Urinalysis Reflex To Culture Urgent
Date Specimen was Collected: 07/24/24
Time Specimen was Collected: 21:27
Abnormal Lab Results
07/24/24
20:38
RBC 3.22 L 10^6/uL
(4.20-5.40)
Hgb 10.3 L g/dL
(12.0-16.0)
Hct 31.0 L %
(37.0-47.0)
MCH 32.0 H pg
(27.0-31.0)
MPV 10.8 H fL
(7.4-10.4)
Absolute Monos (auto) 0.7 H 10^3/uL
(0.1-0.6)
Immature Gran % 0.6 H %
(0-0.5)
Monocytes % 11.7 H %
(1.7-9.3)
Sodium 146 H mmol/L
(135-145)
Potassium 3.4 L mmol/L
(3.5-5.1)
Chloride 108 H mmol/L
(98-107)
Glucose 122 H mg/dl
(70-99)
Ionized Calcium 1.12 L mMOL/L
(1.15-1.33)
Magnesium 1.0 L mg/dl
(1.6-2.3)
07/24/24 20:38
07/24/24 20:38
Vital Signs
Initial and Last Documented VS:
Initial Vital Signs
Temp Pulse Resp BP Pulse Ox
98.7 F 91 18 174/102 99
07/24/24 19:40 07/24/24 19:40 07/24/24 19:40 07/24/24 19:40 07/24/24 19:40
Last Documented Vital Signs
Temp Pulse Resp BP Pulse Ox
98.7 F 88 21 115/65 96
07/24/24 19:40 07/25/24 01:15 07/25/24 01:00 07/25/24 01:00 07/25/24 01:15
MDM/Problems Addressed
Differential Diagnosis Includes:
Recurring electrolyte abnormality, concern for recurring hypokalemia given magnesium remains low
MDM/Problems Addressed:
73-year-old female presenting to the ER for evaluation of hypomagnesemia. Patient with recent admission due to the profound electrolyte disturbance. She does note she was significantly symptomatic during that visit and today feels quite well. She
is hemodynamically stable in no acute distress. Repeat labs ordered. Disposition pending
*Pulse Oximetry
Patient hypoxic: no
*Critical Care Note
Total Time (30-74mins, 75-104mins- exclusive of procedures): Not Applicable
Data Reviewed
Review of Other/Old Records Reveals: Labs, Records and Discharge Summary
Source: patient and records
Patient Management
Escalation/DeEscalation of care consider admission/obs:
Patient completed infusion without difficulty. Recommended repeat labs within the next week or so. Aware of return precautions to the ER. Stable for discharge home.
ED Attending Note
-
Portions of this chart may have been created with voice recognition software.� Occasional wrong word or��sound alike� substitutions may have occurred due to the inherent limitations of voice recognition software.
Discharge Plan
Departure
Patient Disposition: Home (Routine Discharge)
Date of Disposition: 07/25/24
Time of Disposition: 00:46
Patient with high blood pressure during this ER visit?: Yes
Discharge Problem:
Hypomagnesemia, Hypokalemia
Instructions: Hypomagnesemia
Prescriptions:
No Action
cyanocobalamin (vitamin B-12) 1,000 mcg Tablet
1,000 mcg PO DAILY
lisinopril 10 mg Tablet
10 mg PO DAILY
cholecalciferol (vitamin D3) [Vitamin D3] 25 mcg (1,000 unit) Tablet
25 mcg PO DAILY
Tremfya Pen 200 mg/2 mL Pen Injector
200 mg SC Q8W
acetaminophen [Tylenol] 325 mg Tablet
650 mg PO Q6HPRN PRN (Reason: mild pain )
Referrals:
Barber Calderon DO [Family Provider] -
Interventions
Interventions:
*Risk Screen - Suicide Last Done: 07/24/24 19:40
*Nursing Disposition Last Done: 07/25/24 02:39
Discharge Date and Time
Discharge Date/Time: 07/25/24 01:40
Print Language: IVORIAN
[2024-07-24 20:48] LABS: Ionized Calcium 1.12 mMOL/L (1.15-1.33)
[2024-07-24 20:56] LABS: % Basophils 0.3 % (0-2); % Eosinophils 4.7 % (0-6); % Immature Granulocytes 0.6 % (0-0.5); % Lymphocytes 28.5 % (20.5-51.1); % Monocytes 11.7 % (1.7-9.3); % Neutrophils 54.2 % (42.2-75.2); Absolute Eosinophils 0.3 10^3/uL (0-0.7); Absolute Lymphocytes 1.8 10^3/uL (1.2-3.4); Absolute Monocytes 0.7 10^3/uL (0.1-0.6); Absolute Neutrophils 3.4 10^3/uL (1.4-6.5); Hemoglobin 10.3 g/dL (12.0-16.0); Mean Corp Hgb Conc. 33.2 g/dL (33.0-37.0); Mean Corpuscular Volume 96.3 fL (81.0-99.0); Mean Platelet Volume 10.8 fL (7.4-10.4); Nucleated Red Blood Cells % 0 %; Platelet Count 188 10^3/uL (130-400); Red Blood Cell Count 3.22 10^6/uL (4.20-5.40); Red Cell Dist. Width 12.4 % (11.5-14.5); White Blood Cell Count 6.2 10^3/uL (4.8-10.8)
[2024-07-24 21:00] VITALS: BP 150/84
[2024-07-24 21:04] LABS: ALT (SGPT) 21 U/L (0-35); AST (SGOT) 27 U/L (14-36); Albumin 4.3 g/dl (3.5-5.0); Alkaline Phosphatase 54 U/L (38-126); Blood Urea Nitrogen 13 mg/dl (7-17); Calcium 8.6 mg/dl (8.4-10.2); Carbon Dioxide 22 mmol/L (22-30); Chloride 108 mmol/L (98-107); Glucose 122 mg/dl (70-99); Potassium 3.4 mmol/L (3.5-5.1); Sodium 146 mmol/L (135-145); Total Bilirubin 0.7 mg/dl (0.2-1.3); Total Protein 7.2 g/dl (6.3-8.2); eGFR 59.12
[2024-07-24 21:24] LABS: Phosphorus 3.2 mg/dl (2.5-4.5)
[2024-07-24] MEDS: MAGNESIUM SULFATE 100 IV (21:32)
[2024-07-24] MEDS: KCL 40 MEQ PO (21:33)
[2024-07-24 21:42] LABS: Urine Albumin Negative (Neg - Trace); Urine Bilirubin Negative (Negative); Urine Character Clear (Clear); Urine Color Yellow; Urine Glucose Negative (Negative); Urine Ketone Negative (Negative); Urine Leukocyte Negative (Negative); Urine Nitrite Negative (Negative); Urine Occult Blood Negative (Negative); Urine Specific Gravity 1.005 (<1.030); Urine Urobilinogen Negative (Neg - 1+)
[2024-07-24 22:00] VITALS: BP 119/86
[2024-07-24 23:00] VITALS: BP 126/68
[2024-07-25] VITALS: BP 133/70
[2024-07-25 01:00] VITALS: BP 115/65
[2024-07-26 08:49] LABS: Intact PTH 56.3 pg/ml (13.6-85.8)
== END 2024-07-25 01:40 | disposition home or self-care (01) ==
LOC: EMR 19:38
PROVIDERS: Physician Assistant Medical; EMERGENCY PHYSICIAN Student in an Organized Health Care Education/Training Program; FAMILY PHYSICIAN Family Medicine
DX: E83.42 Hypomagnesemia (principal); E87.6 Hypokalemia; I10 Essential (primary) hypertension; E78.00 Pure hypercholesterolemia, unspecified; Z90.49 Acquired absence of other specified parts of digestive tract
CPT/HCPCS: 99284; 96365; 96366; 36415; 80053; 81003; 82330; 83735; 83970; 84100; 85025; 93005

== ENCOUNTER → 2024-08-01 14:22 | Outpatient (REF) | payer MEDICARE, OTHER, SELFPAY ==
[2024-08-01 15:46] LABS: Blood Urea Nitrogen 17 mg/dl (7-17); Calcium 9.1 mg/dl (8.4-10.2); Carbon Dioxide 23 mmol/L (22-30); Chloride 103 mmol/L (98-107); Glucose 169 mg/dl (70-99); Magnesium 1.1 mg/dl (1.6-2.3); Potassium 3.5 mmol/L (3.5-5.1); Sodium 143 mmol/L (135-145); eGFR 52.73
== END ==
LOC: REG 14:22
PROVIDERS: ATTENDING PHYSICIAN Family Medicine
DX: E61.2 Magnesium deficiency (principal)
CPT/HCPCS: 36415; 80048; 83735

== ENCOUNTER → 2024-08-25 13:42 | Outpatient (REF) | payer MEDICARE, OTHER, SELFPAY ==
[2024-08-25 15:33] LABS: Blood Urea Nitrogen 17 mg/dl (7-17); Calcium 7.6 mg/dl (8.4-10.2); Carbon Dioxide 25 mmol/L (22-30); Chloride 105 mmol/L (98-107); Glucose 158 mg/dl (70-99); Magnesium 0.7 mg/dl (1.6-2.3); Potassium 3.6 mmol/L (3.5-5.1); Sodium 140 mmol/L (135-145); eGFR 47.21
== END ==
LOC: REG 13:42
PROVIDERS: ATTENDING PHYSICIAN Family Medicine
DX: R73.01 Impaired fasting glucose (principal); E87.8 Other disorders of electrolyte and fluid balance, not elsewhere classified
CPT/HCPCS: 36415; 80048; 83735

== ENCOUNTER 2024-08-25 18:49 | Emergency (ER) | payer MEDICARE, OTHER, SELFPAY ==
[2024-08-25 18:52] VITALS: BP 166/81
[2024-08-25 19:37] LABS: % Basophils 0.3 % (0-2); % Eosinophils 4.9 % (0-6); % Immature Granulocytes 0.4 % (0-0.5); % Lymphocytes 21.8 % (20.5-51.1); % Monocytes 8.5 % (1.7-9.3); % Neutrophils 64.1 % (42.2-75.2); Absolute Eosinophils 0.3 10^3/uL (0-0.7); Absolute Lymphocytes 1.5 10^3/uL (1.2-3.4); Absolute Monocytes 0.6 10^3/uL (0.1-0.6); Absolute Neutrophils 4.4 10^3/uL (1.4-6.5); Hematocrit 31.5 % (37.0-47.0); Hemoglobin 10.8 g/dL (12.0-16.0); Mean Corp Hgb Conc. 34.3 g/dL (33.0-37.0); Mean Corpuscular Hgb 31.6 pg (27.0-31.0); Mean Corpuscular Volume 92.1 fL (81.0-99.0); Mean Platelet Volume 11.3 fL (7.4-10.4); Nucleated Red Blood Cells % 0 %; Platelet Count 196 10^3/uL (130-400); Red Blood Cell Count 3.42 10^6/uL (4.20-5.40); Red Cell Dist. Width 12.2 % (11.5-14.5); White Blood Cell Count 6.8 10^3/uL (4.8-10.8)
[2024-08-25 19:52] LABS: ALT (SGPT) 19 U/L (0-35); AST (SGOT) 34 U/L (14-36); Albumin 4.3 g/dl (3.5-5.0); Alkaline Phosphatase 71 U/L (38-126); Blood Urea Nitrogen 18 mg/dl (7-17); Calcium 7.4 mg/dl (8.4-10.2); Carbon Dioxide 22 mmol/L (22-30); Chloride 106 mmol/L (98-107); Glucose 155 mg/dl (70-99); Magnesium 0.6 mg/dl (1.6-2.3); Potassium 3.5 mmol/L (3.5-5.1); Sodium 140 mmol/L (135-145); Total Bilirubin 0.8 mg/dl (0.2-1.3); Total Protein 7.4 g/dl (6.3-8.2); eGFR 42.88
[2024-08-25 20:04] VITALS: BMI 38.8
[2024-08-25 20:21] LABS: Ionized Calcium 0.94 mMOL/L (1.15-1.33)
[2024-08-25] MEDS: CALCIUM GLUCONATE 100 IV (20:24)
[2024-08-25 20:35] LABS: Phosphorus 3.8 mg/dl (2.5-4.5)
[2024-08-25 21:04] LABS: Vitamin D, 25-OH*** 34.8 ng/mL (30-80)
--- NOTE | 2024-08-25 21:20 | ED.GENMED ---
History of Present Illness
General
Chief Complaint: Abnormal Lab Value
Source: patient and records
Time Seen by Provider: 08/25/24 19:56
History of Present Illness
History of Present Illness:
74-year-old female with past medical history of hypertension, hyperlipidemia, previous colon and bladder cancer status post right colectomy done earlier this year presents back to the ER at request of primary care provider due to continued abnormal
electrolytes found on outpatient labs including hypomagnesemia, hypokalemia and hypocalcemia. Patient reports that she has been taking her supplements as directed. Today she states she feels okay but intermittently will feel 'foggy'. Patient
denies any urinary or bowel changes. No fevers or infectious symptoms. She has yet to follow-up with specialist for this. No other concerns presently.
Past History
Past History
ED Past Medical History: Cancer, HTN, Hypercholesterolemia and Other (obesity)
ED Past Surgical History: Appendectomy, Bowel resection and Orthopedic
Social History
Tobacco: Non-smoker
Alcohol: None
Drug: None
Personal:
Living: with family
Review of Systems
Review of Systems
All Other Systems: ROS reviewed and negative except as documented in HPI and ROS
Phy Exam
Physical Exam
Physical Exam:
GENERAL: Alert , in no apparent distress
EYE: conjunctiva clear
NECK: Supple
ENT: o/p clr, mmm.
CARDIAC: Regular rate and rhythm
LUNGS: Clear breath sounds bilaterally, no acute respiratory distress, no wheezes/rales/rhonchi
NEUROLOGICAL: Alert and oriented
SKIN: Warm and dry, skin intact.
MUSCULOSKELETAL: well perfused.
PSYCH: Normal and appropriate interaction.
Scores
Heart Failure Risk
Heart Failure Risk Score: Not Applicable
Heart Score for Chest Pain Patients
STEMI patient?: Not applicable
Withdrawal Assessment of Alcohol
Withdrawal Assessment Completed?: Not applicable
Course
Orders/Labs/Results
Orders:
Orders
08/25/24 18:57
Electrocardiogram (*1) Urgent
Reason for Study: QTc Monitoring
EKG- Treatment ONCE
08/25/24 19:13
Complete Blood Count/With Diff Urgent
Comprehensive Metabolic Panel Urgent
Magnesium Urgent
Phosphorus Urgent
Comment: ADD ON
08/25/24 19:59
Add On- LAB Urgent
Tests Added?: phosphorous
Rx Incentive Spirometry [RESP] Routine
Frequency: Other
Comment: BID
08/25/24 20:08
Calcium Gluconate 1 gram/100mL [Calcium Gluconate] 1 gram in 100 ml IV ONCE
08/25/24 20:11
Ionized Calcium Urgent
Vitamin D, 25-OH Urgent
08/25/24 20:49
Magnesium Sulfate 4 Gram/100Ml [Magnesium Sulfate] 4 gram in 100 ml IV NOW
Abnormal Lab Results
08/25/24 08/25/24
19:13 20:11
RBC 3.42 L 10^6/uL
(4.20-5.40)
Hgb 10.8 L g/dL
(12.0-16.0)
Hct 31.5 L %
(37.0-47.0)
MCH 31.6 H pg
(27.0-31.0)
MPV 11.3 H fL
(7.4-10.4)
BUN 18 H mg/dl
(7-17)
Creatinine 1.3 H mg/dL
(0.6-1.0)
Glucose 155 H mg/dl
(70-99)
Calcium 7.4 L mg/dl
(8.4-10.2)
Ionized Calcium 0.94 L mMOL/L
(1.15-1.33)
Magnesium 0.6 L* mg/dl
(1.6-2.3)
12/23/24 19:13
08/25/24 19:13
Vital Signs
Initial and Last Documented VS:
Initial Vital Signs
Temp Pulse Resp BP Pulse Ox
97.6 F 78 18 166/81 98
08/25/24 18:52 08/25/24 18:52 08/25/24 18:52 08/25/24 18:52 08/25/24 18:52
Last Documented Vital Signs
Temp Pulse Resp BP Pulse Ox
97.6 F 75 22 144/70 99
08/25/24 18:52 08/26/24 01:27 08/26/24 01:27 08/26/24 01:27 08/26/24 01:27
MDM/Problems Addressed
Differential Diagnosis Includes:
Recurring electrolyte abnormality, malabsorption, renal dysfunction, unspecified endocrine disorder
MDM/Problems Addressed:
74-year-old female presenting to the emergency department for evaluation at request of primary care provider for continued electrolyte abnormalities. Patient reportedly had a low potassium and low magnesium done on outpatient labs today. For the
most part she is asymptomatic presently. Labs were initiated in triage which do show a magnesium of 0.6, mild hypocalcemia of 7.4 but an otherwise normal potassium. Mild renal dysfunction. I reviewed these labs with patient who states she has no
intention of being admitted and would like to go home. Will give a magnesium and calcium infusion here. I will notify primary care provider and provide patient with information for nephrology to follow-up with for further evaluation.
*Pulse Oximetry
Patient hypoxic: no
*Critical Care Note
Total Time (30-74mins, 75-104mins- exclusive of procedures): Not Applicable
Data Reviewed
Review of Other/Old Records Reveals: Labs and Records
Source: patient, records, family and physician
Patient Management
Discussion with other providers: PCP
Escalation/DeEscalation of care consider admission/obs:
Primary care provider updated that patient did not want to be admitted to the hospital and agrees with plan for nephrology outpatient follow-up.
ED Attending Note
-
Portions of this chart may have been created with voice recognition software.� Occasional wrong word or��sound alike� substitutions may have occurred due to the inherent limitations of voice recognition software.
Discharge Plan
Departure
Patient Disposition: Home (Routine Discharge)
Date of Disposition: 08/25/24
Time of Disposition: 22:20
Patient with high blood pressure during this ER visit?: Yes
Discharge Problem:
Hypomagnesemia, Hypocalcemia
Instructions: Hypomagnesemia
Prescriptions:
No Action
cyanocobalamin (vitamin B-12) 1,000 mcg Tablet
1,000 mcg PO DAILY
lisinopril 10 mg Tablet
10 mg PO DAILY
cholecalciferol (vitamin D3) [Vitamin D3] 25 mcg (1,000 unit) Tablet
25 mcg PO DAILY
Tremfya Pen 200 mg/2 mL Pen Injector
200 mg SC Q8W
acetaminophen [Tylenol] 325 mg Tablet
650 mg PO Q6HPRN PRN (Reason: mild pain )
magnesium oxide 500 mg magnesium Tablet
500 mg PO HS
furosemide 20 mg Tablet
20 mg PO DAILY
Referrals:
Evelin Cook MD [Active] - (Nephrology - Please call for appointment [facility])
Interventions
Interventions:
*Risk Screen - Suicide Last Done: 08/25/24 18:52
*General Assessment Last Done: 08/25/24 18:52
*Neglect/Abuse Screening Last Done: 08/25/24 18:52
ED- Fall Risk Assessment Last Done: 08/26/24 01:24
*ED COVID-19 Vaccine History Last Done: 08/26/24 01:25
*Nursing Disposition Last Done: 08/26/24 01:27
Discharge Date and Time
Discharge Date/Time: 08/26/24 01:31
Print Language: ICELANDIC
[2024-08-25] MEDS: MAGNESIUM SULFATE 100 IV (21:21)
[2024-08-25 21:26] VITALS: BP 146/74
[2024-08-26 01:27] VITALS: BP 144/70
== END 2024-08-26 01:31 | disposition home or self-care (01) ==
LOC: EMR 18:49
PROVIDERS: Emergency Medicine; Physician Assistant Medical; EMERGENCY PHYSICIAN Student in an Organized Health Care Education/Training Program; FAMILY PHYSICIAN Family Medicine
DX: E83.42 Hypomagnesemia (principal); E83.51 Hypocalcemia; E78.00 Pure hypercholesterolemia, unspecified; I10 Essential (primary) hypertension; Z85.51 Personal history of malignant neoplasm of bladder; Z85.038 Personal history of other malignant neoplasm of large intestine; Z90.49 Acquired absence of other specified parts of digestive tract
CPT/HCPCS: 96374; 96375; 99284; 80053; 82306; 82330; 83735; 84100; 85025; 93005

== ENCOUNTER → 2024-09-04 12:18 | Outpatient (REF) | payer MEDICARE, OTHER, SELFPAY ==
[2024-09-04 15:46] LABS: ALT (SGPT) 21 U/L (0-35); AST (SGOT) 29 U/L (14-36); Albumin 4.5 g/dl (3.5-5.0); Alkaline Phosphatase 99 U/L (38-126); Blood Urea Nitrogen 17 mg/dl (7-17); Calcium 9.1 mg/dl (8.4-10.2); Carbon Dioxide 26 mmol/L (22-30); Chloride 102 mmol/L (98-107); Glucose 130 mg/dl (70-99); Magnesium 1.5 mg/dl (1.6-2.3); Potassium 4.4 mmol/L (3.5-5.1); Sodium 140 mmol/L (135-145); Total Protein 7.6 g/dl (6.3-8.2)
== END ==
LOC: REG 12:18
PROVIDERS: ATTENDING PHYSICIAN Family Medicine
DX: E83.42 Hypomagnesemia (principal); E83.51 Hypocalcemia
CPT/HCPCS: 36415; 80053; 83735

== ENCOUNTER → 2024-09-16 15:56 | Outpatient (REF) | payer MEDICARE, OTHER, SELFPAY ==
[2024-09-16 17:17] LABS: % Basophils 0.4 % (0-2); % Eosinophils 2.7 % (0-6); % Immature Granulocytes 0.7 % (0-0.5); % Monocytes 9.2 % (1.7-9.3); Absolute Eosinophils 0.3 10^3/uL (0-0.7); Absolute Immature Granulocytes 0.1 10^3/uL (0-0.05); Absolute Neutrophils 7.1 10^3/uL (1.4-6.5); Hematocrit 37.4 % (37.0-47.0); Hemoglobin 12.4 g/dL (12.0-16.0); Mean Corp Hgb Conc. 33.2 g/dL (33.0-37.0); Mean Corpuscular Hgb 30.6 pg (27.0-31.0); Mean Corpuscular Volume 92.3 fL (81.0-99.0); Mean Platelet Volume 10.8 fL (7.4-10.4); Nucleated Red Blood Cells % 0 %; Platelet Count 249 10^3/uL (130-400); Red Blood Cell Count 4.05 10^6/uL (4.20-5.40); Red Cell Dist. Width 11.9 % (11.5-14.5); White Blood Cell Count 10.5 10^3/uL (4.8-10.8)
[2024-09-16 17:20] LABS: Urine Albumin Negative (Neg - Trace); Urine Bilirubin Negative (Negative); Urine Character Slightly Cloudy (Clear); Urine Color Yellow; Urine Glucose Negative (Negative); Urine Ketone Negative (Negative); Urine Leukocyte 1+ (Negative); Urine Nitrite Negative (Negative); Urine Occult Blood Negative (Negative); Urine Specific Gravity 1.015 (<1.030); Urine Urobilinogen Negative (Neg - 1+)
[2024-09-16 17:27] LABS: Urine Squamous Cell >30 /LPF (Few)
[2024-09-16 17:28] LABS: Urine Bacteria Few (Negative); Urine Red Blood Cell 0-2 /HPF (0-2); Urine White Cell 16-20 /HPF (0-5)
[2024-09-16 17:41] LABS: Microalbumin, Random Urine 0.6 mg/dl (0.6-1.7)
[2024-09-16 17:44] LABS: ALT (SGPT) 27 U/L (0-35); AST (SGOT) 26 U/L (14-36); Albumin 4.7 g/dl (3.5-5.0); Alkaline Phosphatase 86 U/L (38-126); Blood Urea Nitrogen 38 mg/dl (7-17); Calcium 9.8 mg/dl (8.4-10.2); Carbon Dioxide 23 mmol/L (22-30); Chloride 102 mmol/L (98-107); Glucose 126 mg/dl (70-99); Magnesium 1.7 mg/dl (1.6-2.3); Potassium 4.6 mmol/L (3.5-5.1); Sodium 138 mmol/L (135-145); Total Bilirubin 0.8 mg/dl (0.2-1.3); Total Protein 8.1 g/dl (6.3-8.2); eGFR 33.42
[2024-09-16 18:16] LABS: TSH Reflex To Free T4 1.64 uIU/ml (0.47-4.68)
[2024-09-17 08:58] LABS: Glycohemoglobin (HgbA1c) 6.3 % (4.0-5.6)
== END ==
LOC: REG 15:56
PROVIDERS: ATTENDING PHYSICIAN Family Medicine
DX: Z00.00 Encounter for general adult medical examination without abnormal findings (principal); I12.9 Hypertensive chronic kidney disease with stage 1 through stage 4 chronic kidney disease, or unspecified chronic kidney disease; E78.2 Mixed hyperlipidemia; E11.21 Type 2 diabetes mellitus with diabetic nephropathy; E83.42 Hypomagnesemia; R39.9 Unspecified symptoms and signs involving the genitourinary system
CPT/HCPCS: 36415; 80053; 81003; 81015; 82043; 83036; 83735; 84443; 85025; 87086

== ENCOUNTER → 2024-09-30 14:25 | Outpatient (REF) | payer MEDICARE, OTHER, SELFPAY ==
[2024-09-30 15:25] LABS: ALT (SGPT) 25 U/L (0-35); AST (SGOT) 30 U/L (14-36); Albumin 4.6 g/dl (3.5-5.0); Alkaline Phosphatase 84 U/L (38-126); Blood Urea Nitrogen 31 mg/dl (7-17); Calcium 9.4 mg/dl (8.4-10.2); Carbon Dioxide 22 mmol/L (22-30); Chloride 106 mmol/L (98-107); Glucose 123 mg/dl (70-99); Phosphorus 3.1 mg/dl (2.5-4.5); Potassium 4.6 mmol/L (3.5-5.1); Sodium 139 mmol/L (135-145); Total Protein 7.8 g/dl (6.3-8.2); eGFR 39.23
[2024-09-30 15:37] LABS: Intact PTH 105.4 pg/ml (13.6-85.8)
== END ==
LOC: REG 14:25
PROVIDERS: ATTENDING PHYSICIAN Internal Medicine Nephrology; FAMILY PHYSICIAN Family Medicine
DX: N28.9 Disorder of kidney and ureter, unspecified (principal); R07.81 Pleurodynia; R79.0 Abnormal level of blood mineral
CPT/HCPCS: 36415; 71101; 80053; 83970; 84100

== ENCOUNTER → 2024-10-16 12:40 | Outpatient (REF) | payer MEDICARE, OTHER, SELFPAY ==
[2024-10-16 13:25] LABS: % Basophils 0.4 % (0-2); % Eosinophils 4.2 % (0-6); % Immature Granulocytes 0.7 % (0-0.5); % Lymphocytes 22.8 % (20.5-51.1); % Monocytes 9.9 % (1.7-9.3); Absolute Eosinophils 0.2 10^3/uL (0-0.7); Absolute Lymphocytes 1.2 10^3/uL (1.2-3.4); Absolute Monocytes 0.5 10^3/uL (0.1-0.6); Absolute Neutrophils 3.4 10^3/uL (1.4-6.5); Hematocrit 33.5 % (37.0-47.0); Hemoglobin 10.9 g/dL (12.0-16.0); Mean Corp Hgb Conc. 32.5 g/dL (33.0-37.0); Mean Corpuscular Hgb 29.6 pg (27.0-31.0); Mean Platelet Volume 10.4 fL (7.4-10.4); Nucleated Red Blood Cells % 0 %; Platelet Count 165 10^3/uL (130-400); Red Blood Cell Count 3.68 10^6/uL (4.20-5.40); Red Cell Dist. Width 13.1 % (11.5-14.5); White Blood Cell Count 5.4 10^3/uL (4.8-10.8)
[2024-10-16 14:10] LABS: Albumin 4.5 g/dl (3.5-5.0); Chloride 104 mmol/L (98-107)
[2024-10-16 14:15] LABS: ALT (SGPT) 27 U/L (0-35); AST (SGOT) 28 U/L (14-36); Alkaline Phosphatase 111 U/L (38-126); Blood Urea Nitrogen 18 mg/dl (7-17); Calcium 9.5 mg/dl (8.4-10.2); Carbon Dioxide 26 mmol/L (22-30); Glucose 117 mg/dl (70-99); HDL Cholesterol 51 mg/dl; LDL Cholesterol, Calculated 119 mg/dl; Magnesium 1.8 mg/dl (1.6-2.3); Potassium 4.4 mmol/L (3.5-5.1); Sodium 137 mmol/L (135-145); Total Bilirubin 1.2 mg/dl (0.2-1.3); Total Cholesterol 195 mg/dl (50-199); Total Protein 7.6 g/dl (6.3-8.2); Triglyceride 126 mg/dl (10-149); Very Low Density Lipoprotein 25 mg/dl (0-30)
[2024-10-18 09:40] LABS: Intact PTH 52.7 pg/ml (13.6-85.8)
== END ==
LOC: RAD 12:40
PROVIDERS: ATTENDING PHYSICIAN Internal Medicine Nephrology; FAMILY PHYSICIAN Family Medicine
DX: N17.9 Acute kidney failure, unspecified (principal); R73.01 Impaired fasting glucose; E87.8 Other disorders of electrolyte and fluid balance, not elsewhere classified; R39.9 Unspecified symptoms and signs involving the genitourinary system; N28.9 Disorder of kidney and ureter, unspecified; R79.0 Abnormal level of blood mineral; Z00.00 Encounter for general adult medical examination without abnormal findings; I12.9 Hypertensive chronic kidney disease with stage 1 through stage 4 chronic kidney disease, or unspecified chronic kidney disease; E78.2 Mixed hyperlipidemia; E11.21 Type 2 diabetes mellitus with diabetic nephropathy; E83.42 Hypomagnesemia
CPT/HCPCS: 76775; 80053; 80061; 83735; 83970; 85025; 87086

== ENCOUNTER → 2024-12-03 14:46 | Outpatient (REF) | payer MEDICARE, OTHER, SELFPAY | LOC: PAVMRI 14:46 | PROVIDERS: ATTENDING PHYSICIAN Otolaryngology; FAMILY PHYSICIAN Family Medicine | DX: H90.A22 Sensorineural hearing loss, unilateral, left ear, with restricted hearing on the contralateral side (principal) | CPT/HCPCS: 70553 ==

== ENCOUNTER → 2024-12-09 12:28 | Outpatient (REF) | payer MEDICARE, OTHER, SELFPAY | LOC: RAD 12:28 | PROVIDERS: ATTENDING PHYSICIAN Surgery; FAMILY PHYSICIAN Family Medicine | DX: Z85.038 Personal history of other malignant neoplasm of large intestine (principal) | CPT/HCPCS: 74177; Q9967 ==

== ENCOUNTER → 2025-01-19 10:30 | Outpatient (REF) | payer MEDICARE, OTHER, SELFPAY ==
[2025-01-19 11:37] LABS: % Basophils 0.4 % (0-2); % Eosinophils 5.9 % (0-6); % Immature Granulocytes 0.7 % (0-0.5); % Monocytes 8.1 % (1.7-9.3); % Neutrophils 60.9 % (42.2-75.2); Absolute Eosinophils 0.3 10^3/uL (0-0.7); Absolute Lymphocytes 1.1 10^3/uL (1.2-3.4); Absolute Monocytes 0.4 10^3/uL (0.1-0.6); Absolute Neutrophils 2.8 10^3/uL (1.4-6.5); Hematocrit 36.2 % (37.0-47.0); Hemoglobin 12.1 g/dL (12.0-16.0); Mean Corp Hgb Conc. 33.4 g/dL (33.0-37.0); Mean Corpuscular Hgb 30.3 pg (27.0-31.0); Mean Corpuscular Volume 90.7 fL (81.0-99.0); Mean Platelet Volume 10.8 fL (7.4-10.4); Nucleated Red Blood Cells % 0 %; Platelet Count 173 10^3/uL (130-400); Red Blood Cell Count 3.99 10^6/uL (4.20-5.40); Red Cell Dist. Width 12.3 % (11.5-14.5); White Blood Cell Count 4.6 10^3/uL (4.8-10.8)
[2025-01-19 12:05] LABS: ALT (SGPT) 22 U/L (0-35); AST (SGOT) 25 U/L (14-36); Albumin 4.6 g/dl (3.5-5.0); Alkaline Phosphatase 75 U/L (38-126); Blood Urea Nitrogen 21 mg/dl (7-17); Calcium 9.6 mg/dl (8.4-10.2); Carbon Dioxide 23 mmol/L (22-30); Chloride 111 mmol/L (98-107); Direct Bilirubin 0.3 mg/dl (0.0-0.4); Glucose 118 mg/dl (70-99); Magnesium 1.5 mg/dl (1.6-2.3); Potassium 4.2 mmol/L (3.5-5.1); Sodium 144 mmol/L (135-145); Total Bilirubin 1.1 mg/dl (0.2-1.3); Total Protein 7.9 g/dl (6.3-8.2); eGFR 47.21
[2025-01-19 12:14] LABS: Total Iron Binding Capacity 392 ug/dl (265-497)
[2025-01-19 18:26] LABS: Hepatitis B Surface Antigen Negative (Negative)
[2025-01-19 18:44] LABS: Hepatitis A Antibody, Total Negative (Negative); Hepatitis B Core Ab, Total Negative (Negative); Hepatitis B Surface Antibody Negative; Hepatitis C Antibody Negative (Negative)
[2025-01-19 18:50] LABS: AFP Male/Tumor Marker 5.25 ng/ml
[2025-01-19 19:36] LABS: CEA 1.44 ng/ml
[2025-01-19 19:42] LABS: Ferritin 31.7 ng/ml (11.1-264.0)
[2025-01-21 19:02] LABS: Quantiferon Mitogen minus NIL 9.95 IU/mL; Quantiferon NIL 0.05 IU/mL; Quantiferon TB Gold Plus Negative (Negative)
[2025-01-22 05:50] LABS: Alpha-1-Antitrypsin 130 mg/dL (90-200); Ceruloplasmin 23 mg/dL (16-45)
[2025-01-22 06:42] LABS: ANA, IgG Reflex to HEp-2 None Detected (None Detected)
[2025-01-22 07:33] LABS: F-Actin Antibody IgG 9 Units (0-19)
== END ==
LOC: RAD 10:30
PROVIDERS: ATTENDING PHYSICIAN Internal Medicine Gastroenterology; FAMILY PHYSICIAN Family Medicine; REFERRING PHYSICIAN Nurse Practitioner
DX: K74.60 Unspecified cirrhosis of liver (principal); L40.0 Psoriasis vulgaris; R73.01 Impaired fasting glucose; R79.0 Abnormal level of blood mineral; R97.0 Elevated carcinoembryonic antigen [CEA]
CPT/HCPCS: 36415; 76700; 80053; 82103; 82105; 82248; 82378; 82390; 82728; 83036; 83550; 83735; 85025; 86015; 86038; 86381; 86480; 86704; 86706; 86708; 86803; 87340

== ENCOUNTER → 2025-04-20 13:28 | Outpatient (REF) | payer MEDICARE, OTHER, SELFPAY ==
[2025-04-20 15:15] LABS: Blood Urea Nitrogen 21 mg/dl (7-17); Calcium 9.3 mg/dl (8.4-10.2); Carbon Dioxide 28 mmol/L (22-30); Chloride 106 mmol/L (98-107); Glucose 107 mg/dl (70-99); Potassium 4.4 mmol/L (3.5-5.1); Sodium 141 mmol/L (135-145); eGFR 42.88
== END ==
LOC: REG 13:28
PROVIDERS: ATTENDING PHYSICIAN Internal Medicine Nephrology; FAMILY PHYSICIAN Family Medicine
DX: I12.9 Hypertensive chronic kidney disease with stage 1 through stage 4 chronic kidney disease, or unspecified chronic kidney disease (principal); I10 Essential (primary) hypertension; E78.2 Mixed hyperlipidemia
CPT/HCPCS: 36415; 80048; 83970; 84100

== ENCOUNTER 2025-05-26 06:23 | Day surgery (SDC) | payer MEDICARE, OTHER, SELFPAY | END 2025-05-26 10:30 | disposition home or self-care (01) | LOC: GI 06:23 | PROVIDERS: ATTENDING PHYSICIAN Internal Medicine Gastroenterology | DX: K63.5 Polyp of colon (principal); K55.20 Angiodysplasia of colon without hemorrhage; K62.4 Stenosis of anus and rectum; K22.89 Other specified disease of esophagus; K74.60 Unspecified cirrhosis of liver; K44.9 Diaphragmatic hernia without obstruction or gangrene; K31.7 Polyp of stomach and duodenum; K31.89 Other diseases of stomach and duodenum; Q40.2 Other specified congenital malformations of stomach; R12 Heartburn; Z85.038 Personal history of other malignant neoplasm of large intestine; Z98.0 Intestinal bypass and anastomosis status | CPT/HCPCS: 45385; 43239; 88305 ==

== ENCOUNTER → 2025-05-29 15:25 | Outpatient (REF) | payer MEDICARE, OTHER, SELFPAY ==
[2025-05-29 16:15] LABS: ALT (SGPT) 23 U/L (0-35); AST (SGOT) 23 U/L (14-36); Albumin 4.5 g/dl (3.5-5.0); Alkaline Phosphatase 83 U/L (38-126); Blood Urea Nitrogen 21 mg/dl (7-17); Calcium 9.8 mg/dl (8.4-10.2); Carbon Dioxide 24 mmol/L (22-30); Chloride 109 mmol/L (98-107); Glucose 121 mg/dl (70-99); Magnesium 1.5 mg/dl (1.6-2.3); Potassium 4.4 mmol/L (3.5-5.1); Sodium 141 mmol/L (135-145); Total Protein 7.9 g/dl (6.3-8.2); eGFR 47.21
== END ==
LOC: REG 15:25
PROVIDERS: ATTENDING PHYSICIAN Family Medicine
DX: E83.42 Hypomagnesemia (principal)
CPT/HCPCS: 36415; 80053; 83735

== ENCOUNTER → 2025-06-11 13:44 | Outpatient (REF) | payer MEDICARE, OTHER, SELFPAY ==
[2025-06-11 15:03] LABS: Magnesium 1.6 mg/dl (1.6-2.3)
[2025-06-11 15:35] LABS: CEA 1.06 ng/ml
== END ==
LOC: REG 13:44
PROVIDERS: ATTENDING PHYSICIAN Surgery; FAMILY PHYSICIAN Family Medicine
DX: Z85.038 Personal history of other malignant neoplasm of large intestine (principal); R79.0 Abnormal level of blood mineral
CPT/HCPCS: 36415; 82378; 83735

== ENCOUNTER → 2025-08-13 15:11 | Outpatient (REF) | payer MEDICARE, OTHER, SELFPAY ==
[2025-08-13 17:39] LABS: Magnesium 1.5 mg/dl (1.6-2.3)
== END ==
LOC: REG 15:11
PROVIDERS: ATTENDING PHYSICIAN Family Medicine
DX: R79.0 Abnormal level of blood mineral (principal)
CPT/HCPCS: 36415; 83735